=== PATIENT | male | born 1955 | race Caucasian/White ===

== ENCOUNTER 2024-05-30 15:36 | Outpatient (CLI) | payer MEDICARE, SELFPAY ==
--- NOTE | ~2024-05-30 | US_ITS ---
EXAMINATION: US aorta [facility] scrn DATE: 05/30/2024 16:22 INDICATION: Abdominal aortic aneurysm screening. TECHNIQUE: Grayscale, color Doppler, and pulsed Doppler images of the aorta and common iliac arteries were obtained. COMPARISON: None. FINDINGS: The aorta is normal in caliber. The right common iliac artery is normal in caliber. The left common i liac artery is normal in caliber. IMPRESSION: 1. No abdominal aortic aneurysm. 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
--- OUTSIDE RECORDS SUMMARY | 2024-05-31 06:05 | XMS_ITS | Data Portability ---
Author Organization [place] [facility] [employer], Main Office Address [address] [place] [address] Care Team Providers Care Production Proofreader Name Role Phone INGRID OTERO Primary Care Provider [phone] INGRID OTERO Referring Provider [phone] Assessment Encounter Date Assessment Date Assessment LastModified by Organization Details LastModified Time 09/25/2023 09/25/2023 This note is dictated and transcribed by [employer]. System Support Technician variances may occur. Despite proofreading, typographical errors may occur. Occasional wrong-word or 'fodas-i-asco' substitutions may have occurred due to the inherent limitations of voice recording. Read the chart carefully and recognize, using context, where substitutions have occurred. Not available 09/25/2023 16:29:48 01/29/2024 01/29/2024 This note is dictated and transcribed by [employer]. System Support Technician variances may occur. Despite proofreading, typographical errors may occur. Occasional wrong-word or 'stgmq-j-invd' substitutions may have occurred due to the inherent limitations of voice recording. Read the chart carefully and recognize, using context, where substitutions have occurred. Not available 01/29/2024 15:01:02 05/27/2024 05/27/2024 This note is dictated and transcribed by [employer]. System Support Technician variances may occur. Despite proofreading, typographical errors may occur. Occasional wrong-word or 'cgxtg-e-hepq' substitutions may have occurred due to the inherent limitations of voice recording. Read the chart carefully and recognize, using context, where substitutions have occurred. Not available 05/27/2024 14:59:49 Plan of Treatment Reminders Order Date Submit Date Provider Last Modified By Organization Details Last Modified Time Details Appointments Establish ed Patient 15 2024 01:15P M Christian Coronado DPM Not available Not available Not available Lab None recorded. Referral None recorded. Procedures None recorded. Surgeries None recorded. Imaging None recorded. Medication Orders ketoconaz ole 2 % topical cream 2023 024 [id number], [address], [place], [id number], 09/25/2023 16:30:47 miconazol e nitrate 2 % topical powder 2023 024 [facility][id number], [address], [place], [id number], 09/25/2023 16:31:06 Patient TargetsNo targets recorded. Patient InstructionsNo instructions recorded. Reason for Referral None Reported. Results Created Date Observation Date Name Description Value Unit Range Abnormal Flag Note LastModifiedBy Organization Detail LastModifiedTime 04/25/20 24 04/25/2024 imagi ng/di agnos tic resul t [place], [address], 04/25/2024 10:50:33 Result Notes None recorded. Problems Name Problem SNOMED Code Status Onset Date Resolution Date Notes Provider Name and Address Organization Details Recorded Time Diabetic peripheral neuropathy 154905512 Active 2023 Christian Coronado DPM [address], [place], [address], [facility] [employer] 4 16:29:43 Tinea pedis 5902073 Active 2023 Christian Coronado DPM [address], [place], [address], [employer] [facility] [employer] 4 16:30:15 Onychomycosis of toenails 523330305 Active 2023 Christian Coronado DPM [address], [place], [address], [facility] 4 16:31:18 Exposure to Agent Maricao Active 2023 Christian Coronado DPM [address], [place], [address], [facility] 4 15:01:13 Problem Notes None recorded. Procedures Surgical History Date Name Laterality Status Provider Name and Address Organization Details Recorded Time 5 Nail Debridement completed Christian Coronado DPM [address], [place], [address], [facility] 05/27/2024 14:59:42 4 Nail Debridement completed Christian Coronado DPM [address], [place], [address], [facility] 02/05/2024 13:57:02 4 Nail Debridement completed Christian Coronado DPM [address], [place], [address], [facility] 09/27/2023 13:57:02 Imaging Results Imaging Date Name Status LastModified by [facility] Details LastModified Time 04/25/2024 imaging/[place], [address], 04/25/2024 10:50:33 Procedure Notes None recorded. Medical Equipment None Reported. Allergies No known drug allergies Medications Name Sig Start Date Stop Date Status Note LastModified by Organization Details LastModified Time prednisone 10 mg tablet active Not Available Not Available Not Available atorvastatin 20 mg tablet Take 1 tablet every day by oral route. active Not Available Not Available No t Available sildenafil 50 mg tablet active Not Available Not Available Not Available prednisone 5 mg tablet active Not Available Not Available No t Available miconazole nitrate 2 % topical powder APPLY TO THE AFFECTED AREA(S) BY TOPICAL ROUTE 2 TIMES PER DAY IN THE MORNING AND EVENING 2023 active Not Available Not Available Not Avai lable sildenafil 25 mg tablet Take 1 tablet every day by oral route. active Not Available Not Available No t Available hydrocortiso ne 2.5 % topical cream with perineal applicator APPLY A THIN LAYER TO THE AFFECTED AREA(S) BY TOPICAL ROUTE 2-4 TIMESDAILY active Not Available Not Available N ot Available metformin 1,000 mg tablet Take 1 tablet twice a day by oral route. active Not Available Not Available No t Available lisinopril 10 mg tablet active Not Available Not Available Not Available lisinopril 5 mg tablet Take 1 tablet every day by oral route. active Not Available Not Available No t Available methylpredni solone 4 mg tablets in a dose pack active Not Available Not Available No t Available ketoconazole 2 % topical cream APPLY TO THE AFFECTED AREA(S) plantar feet BY TOPICAL ROUTE ONCE DAILY, 2 weeks 2023 active Not Available Not Available Not Avai lable aspirin active Not Available Not Avail able Not Available DHEA active Not Available Not Availa ble Not Available niacin active Not Available Not Availa ble Not Available ferrous sulfate active Not Available Not Available Not Available multivitamin active Not Available Not Available Not Available Jardiance 25 mg tablet Take 1 tablet every day by oral route. active Not Available Not Available No t Available Mounjaro 2.5 mg/0.5 mL subcutaneous pen injector Inject 2.5 mg every week by subcutaneou s route. active Not Available Not Available No t Available Vitals Date Recorded Heart rate Respiratory rate Body temperature Oxygen saturation Oxygen saturation in Arterial blood by Pulse oximetry Body height Body mass index (BMI) Body weight Systolic blood pressure Diastolic blood pressure Provider Name and Address Organization Details Last Updated DateTime 4 78 /min 16 /min 97.3 [degF] 96 % 96 % 175.26 cm 28.8 kg/m2 71956.5 1 g 120 mm[Hg] 80 mm[Hg] [facility]an [place] [employer] 4 15:33:41 Date Recorded Body height Body mass index (BMI) Body weight Heart rate Respiratory rate Body temperature Oxygen saturation Oxygen saturation in Arterial blood by Pulse oximetry Systolic blood pressure Diastolic blood pressure Provider Name and Address Organization Details Last Updated DateTime 4 175.26 cm 28.8 kg/m2 68304.5 1 g 77 /min 16 /min 97.3 [degF] 96 % 96 % 120 mm[Hg] 80 mm[Hg] [facility]an [place] [facility] 14:12:05 Date Recorded Body height Body mass index (BMI) Body weight Heart rate Respiratory rate Oxygen saturation Oxygen saturation in Arterial blood by Pulse oximetry Systolic blood pressure Diastolic blood pressure Provider Name and Address Organization Details Last Updated DateTime 175.26 cm 28.8 kg/m2 95670.5 1 g 84 /min 14 /min 98 % 98 % 121 mm[Hg] 75 mm[Hg] Halley Reis [facility] [employer] [facility] 5 14:11:08 Social History Question Answer Notes LastModified by Organizat ion Details LastModified Time Tobacco Smoking Status Former Smoker Halley collins [facility] [employer] [facility] 09/25/2023 16:22:43 What Is Your Level Of Alcohol Consumption? Occasional Information not available 09/25/2023 What Is Your Level Of Caffeine Consumption? Occasional Information not available 09/25/2023 When Did You Quit Smoking? 11-15yearssinc elastcigarette Information not available 09/25/2023 What Was The Date Of Your Most Recent Tobacco Screening? 09/25/2023 Information not available 09/25/2023 Have You Ever Been Counseled For Unhealthy Alcohol Use? No Information not available 09/25/2023 Do You Use Any Illicit Or Recreational Drugs? No Information not available 09/25/2023 Has Tobacco Cessation Counseling Been Provided? No Information not available 09/25/2023 How Many Years Have You Smoked Tobacco? 25 Information not available 09/25/2023 Do You Or Have You Ever Used Any Other Forms Of Tobacco Or Nicotine? No Information not available 09/25/2023 Sex: Unknown Functional Status None recorded. Mental Status None recorded. Family History Relationship Description Onset Age of this Age Resolved Age Notes LastModified by Organization Details LastModified Time Father No current problems or disability [email or web address] Not available 05/27 14:01:39 Father Hypertensive disorder Not available 2023 16:22:00 Father Family history of malignant neoplasm [email or web address] Not available 2024 14:01:39 Mother No current problems or disability [email or web address] Not available 05/27 14:01:39 Mother Diabetes mellitus Not available 2023 16:21:41 Mother Family history of malignant neoplasm [email or web address] Not available 2024 14:01:39 Unspecified Relation Family history of stroke [email or web address] Not available 2024 14:01:39 Medical History Condition Response DIABETES, TYPE Y CANCER: SPECIFY Y ANXIETY DISORDER Y HYPERTENSION Y HIGH CHOLESTEROL / HYPERLIPIDEMIA Y Past Encounters Encounter ID Performer Location Encounter Start Date Encounter Closed Date Diagnosis/Indication Diagnosis SNOMED-CT Code Diagnosis ICD10 Code Diagnosis Note [id number] Christian Coronado DPM [facility] [place] [address] [facility] [address] [place] [address] 09/25/2023 15:22:50 09/28/2023 12:08:28 Diabetic peripheral neuropathy 240393999 E11.40 Patient educated on neuropathy , diabetes, diabetic diet, and daily foot exams. Patient is to check feet daily for new wounds, blisters, redness to prevent infection and ulceration s to the feet. Patient will return to clinic in 3 months for diabetic foot workup. Tinea pedis 1626381 B35. 3 bilateral feeteducat ed on foot hygiene and shoe hygiene Onychomyco sis of toenails 544898092 B35.1 Patient was educated on treatment options of onychomyco sis. Patient's nails 1 through 10 were debrided without incident. Patient defers pharmacolo gical management due to possible side effects and will continue with conservati ve options. Return to clinic as needed every 3 months for this problem [id number] Christian Coronado DPM [facility] [place] [address] [place] [address] 01/29/2024 13:54:07 02/05/2024 18:01:49 Diabetic peripheral neuropathy 599729978 E11.40 Patient educated on neuropathy , diabetes, diabetic diet, and daily foot exams. Patient is to check feet daily for new wounds, blisters, redness to prevent infection and ulceration s to the feet. Patient will return to clinic in 3 months for diabetic foot workup. Onychomyco sis of toenails 806140215 B35.1 Patient was educated on treatment options of onychomyco sis. Patient's nails 1 through 10 were debrided without incident. Patient defers pharmacolo gical management due to possible side effects and will continue with conservati ve options. Return to clinic as needed every 3 months for this problem Exposure t o Agent Maricao [id number] Z77.29 while in [id number] Christian Coronado DPM [facility] [place] [address] [place] [address] 05/27/2024 14:00:03 05/27/2024 15:00:05 Diabetic peripheral neuropathy 769870687 E11.40 Patient educated on neuropathy , diabetes, diabetic diet, and daily foot exams. Patient is to check feet daily for new wounds, blisters, redness to prevent infection and ulceration s to the feet. Patient will return to clinic in 3 months for diabetic foot workup. Onychomyco sis of toenails 449906115 B35.1 Patient was educated on treatment options of onychomyco sis. Patient's nails 1 through 10 were debrided without incident. Patient defers pharmacolo gical management due to possible side effects and will continue with conservati ve options. Return to clinic as needed every 3 months for this problem Health Concerns Section Related Observation LastModified by Organization Detai ls LastModified Time None Recorded Concern Status LastModified by Organization Details LastModified Time None Recorded Advance Directives Directive None Recorded Payers Encounter Date Sequence Insurance Name Policy Number Policy Wood Covered Member ID Wood Member ID Guarantor Name 09/25/2023 1 [employer] (MEDICARE REPLACEMENT/ ADVANTAGE - PPO) Albert Tiwari [id number] Albert Tiwari 01/29/2024 1 [employer] (MEDICARE REPLACEMENT/ ADVANTAGE - PPO) Albert Tiwari [id number] Albert Tiwari 05/27/2024 1 [employer] (MEDICARE REPLACEMENT/ ADVANTAGE - PPO) Albert Tiwari [id number] Albert Tiwari Notes Date Note Type Note Provider Name and Address Organization Details Recorded Time 09/25/2023 text/html . Patient is a 68-year-old male diabetic who presents the office for diabetic foot care. Patient states that he has also noticed a itching and rash to his feet. Patient denies any treatment for this condition. Patient also has thickened and discolored toenails. Patient denies any other complaints. Christian Coronado DPM [address] [place] [address] [address] [facility] [address], [place], [address], [facility] 09/27/2023 13:59:50 01/29/2024 text/html . Patient 68-year-old male diabetic who returns to the office for follow-up on diabetic foot care. Patient continues have numbness and tingling of the feet. Patient has onychomycosis of the toenails which he is unable to cut the toenails. Patient denies any other pedal complaints. Christian Coronado DPM [address], [place], [address], [facility] 02/05/2024 13:57:26 05/27/2024 text/html . Patient is a 69-year-old male diabetic with neuropathy he returns for follow-up on routine diabetic foot care states overall he is doing well denies any open wounds or infection. Patient states he needs his nails cut as he has difficulty cutting them due to neuropathy. Patient denies any intermittent claudication walking or rest pain. Patient denies any other complaints. Christian Coronado DPM [address], [place], [address], [facility] 05/27/2024 15:00:04
--- OUTSIDE RECORDS SUMMARY | 2024-05-31 06:06 | XMS_ITS | Data Portability ---
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 I told him that I am not comfortable doing that he could seek the opinion of specialist and environmental toxins we will obtain blood work old records follow-up with me 4 months [email or web address] Not available 09/23/2023 16:36:15 12/28/2023 12/28/2023 healthy high tian d lifestyle care instructions dermatology referral psychiatric referral follow up with me in 4 months blood work has been reviewed he will continue to see the [facility] as well it sounds like for some ongoing evaluations for possibly some toxic exposures [email or web address] Not available 12/28/2023 23:04:08 04/15/2024 04/15/2024 mild elevation o f liver enzymes we will obtain blood work for that also some inflammatory markers for his joint pain keep his regular visit more recommendations pending results of testing [email or web address] Not available 05/17/2024 22:00:22 05/23/2024 05/23/2024 refill medicatio ns he will see me in recommended Prevnar 20 we do not have any in the clinic today [email or web address] Not available 05/23/2024 23:18:19 Plan of Treatment Reminders Order Date Submit Date Provider Last Modified By Organization Details Last Modified Time Details Appointments NEW PATIENT 60 2024 01:30P M MONIQUE MCCALLUM NP Not available Not available Not available ANY 15 2024 10:00A M Ingrid Leger MD Not available Not available Not available Lab PSA, total, serum or plasma 2023 024 [facility], [address], [address], [place], [address], 12/19/2023 11:38:57 HbA1c (hemoglob in A1c), blood 2023 024 [facility], [address], [address], [place], [address], 12/19/2023 11:38:58 albumin/c reatinine , mass ratio, urine 2023 024 [facility], [address], [address], [place], [address], 12/19/2023 11:38:57 CBC w/ auto diff 2023 024 [facility], [address], [address], [place], [address], 12/19/2023 11:38:58 lipid panel, serum 2023 024 [facility], [address], [address], [place], [address], 12/19/2023 11:38:58 CMP, serum or plasma 2023 024 [facility], [address], [address], [place], [address], 12/19/2023 11:38:58 TSH, ultra-sen sitive, serum 2023 024 [facility], [address], [address], [place], [address], 12/19/2023 11:38:57 unlisted lab - T4, free 2023 024 [email or web address] [facility], [address], [address], [place], [address], 12/19/2023 11:40:07 T3, free, serum or plasma 2023 024 J[facility], [address], [address], [place], [address], 12/19/2023 11:38:57 CK (creatine kinase), total, serum [email or web address] [address], [place], [address], 04/19/2024 11:15:25 vitamin D, 25-hydrox y, total, serum [address] (L&D), [address], [place], [address], 04/15/2024 14:55:00 cryoglobu hilton, quantitat joanna, serum [address] (L&D), [address], [place], [address], 04/15/2024 14:55:00 hepatitis panel (A+B+C), acute, serum [address] (L&D), [address], [place], [address], 04/15/2024 14:55:00 CHETAN (antinucl ear antibodie s) screen, serum [address] (L&D), [address], [place], [address], 04/15/2024 14:55:00 copper, serum or plasma [address] (L&D), [address], [place], [address], 04/15/2024 14:55:00 cerulopla smin, serum [address] (L&D), [address], [place], [address], 04/15/2024 14:55:00 alpha-1-a ntitrypsi n (aat), QN, serum [address] (L&D), [address], [place], [address], 04/15/2024 14:55:00 iron + TIBC + ferritin, serum 2023 [facility] (L&D), [address], [place], [address], 04/19/2024 11:14:51 ESR (erythroc yte sedimenta tion rate), blood 2023 [facility] (L&D), [address], [place], [address], 04/19/2024 11:13:29 smooth muscle Ab, serum [address] (L&D), [place], [address], 04/15/2024 14:55:00 mitochond rial Ab, serum [address] (L&D), [address], [place], [address], 04/15/2024 14:55:00 connectiv e tissue autoimmun e Ab panel, serum [address] (L&D), [address], [place], [address], 04/15/2024 14:55:00 rf (rheumato id factor) + anti-ccp abs, serum [address] (L&D), [address], [place], [address], 04/15/2024 14:55:00 Referral podiatris t referral 2023 024 [facility], [address], [place], [address], 12/21/2023 16:51:03 psychiatr ist referral 2023 024 JOR[facility]ane[facility] (), [address] [place], [address], 01/03/2024 14:25:08 cardiolog ist referral 2023 024 [facility], [address] [facility] [address], [place], [address], 05/16/2024 17:57:57 dermatolo gist referral 2023 024 [facility], [address] [place], [address], 04/22/2024 14:57:22 Procedures None recorded. Surgeries None recorded. Imaging US, liver 2023 024 JOR[facility] (L&D), [address], [place], [address], 05/30/2024 15:15:35 Medication Orders sildenafi l 50 mg tablet 2024 025 [id number], [address] [facility] [place], [id number], 05/23/2024 14:40:35 Mounjaro 2.5 mg/0.5 mL subcutane ous pen injector 2024 025 [email or web address] [facility][id number], [address] [facility] [place], [id number], 05/23/2024 14:40:35 metformin 1,000 mg tablet 2024 025 [email or web address] [facility] [facility] #56211, [address] [facility] [place], [id number], 05/23/2024 14:40:35 lisinopri l 10 mg tablet 2024 025 [email or web address] [facility] #[id number], [address] [facility] [employer] [place], [place], [id number], 05/23/2024 14:40:35 Patient TargetsNo targets recorded. Patient Instructions Encounter Date Encounter Id Patient Instructions Last Modified By Organization Details Last Modified Time 09/11/2023 [id number] diabetic eye exam* JORGE Not available 12/19/2023 11:33:05 12/28/2023 [id number] A healthy lifestyle: care instructions [email or web address] Not available 12/28/2023 17:50:47 04/15/2024 [id number] A healthy lifestyle: care instructions [email or web address] Not available 04/15/2024 14:55:00 05/23/2024 [id number] A healthy lifestyle: care instructions [email or web address] Not available 05/23/2024 14:40:35 Reason for Referral Naturopathic Oncology Provider Referral for Type 2 diabetes mellitus Referring Physician: Ingrid Leger, Internal Medicine, Encounter Date: 09/11/2023 Psychiatrist Referral for Po sttraumatic stress disorder Referring Physician: Ingrid Leger, Internal Medicine, Encounter Date: 12/28/2023 [employer]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 Referring Physician: Ingrid Leger, Internal Medicine, Encounter Date: 12/28/2023 Single Stroke Preformer Referral for Co ronary atherosclerosis Referring Physician: Ingrid Leger, Internal Medicine, Encounter Date: 12/28/2023 Results Created Date Observation Date Name Description Value Unit Range Abnormal Flag Note LastModifiedBy Organization Detail LastModifiedTime 12/19/19 24 12/19/2023 T4, free, serum A1C 6.4 Not Available [facility] [address], [place], [address], 12/19/2023 11:38:58 12/19/19 24 12/19/2023 HbA1c (hemo globi n A1c), blood A1C 6.4 Not Available [facility] [address], [place], [address], 12/19/2023 11:38:58 12/19/19 24 12/19/2023 CBC w/ auto diff A1C 6.4 Not Available [facility] [address], [place], [address], 12/19/2023 11:38:58 12/19/19 24 12/19/2023 lipid panel , serum A1C 6.4 Not Available [facility] [address], [place], [address], 12/19/2023 11:38:58 12/19/19 24 12/19/2023 CMP, serum or plasm a A1C 6.4 Not Available [facility] [address] [facility] [address], [place], [address], 12/19/2023 11:38:58 12/19/19 24 12/19/2023 TSH, ultra -sens itive , serum A1C 6.4 Not Available [facility] [address] [facility] [address], [place], [address], 12/19/2023 11:38:57 12/19/19 24 12/19/2023 T3, free, serum or plasm a A1C 6.4 Not Available [facility] [address] [facility] [address], [place], [address], 12/19/2023 11:38:57 12/19/19 24 12/19/2023 PSA, total , serum or plasm a A1C 6.4 Not Available [facility] [address] [facility] [address], [place], [address], 12/19/2023 11:38:57 12/19/19 24 12/19/2023 album in/cr eatin ine, mass ratio , urine A1C 6.4 Not Available [facility] [address] [facility] [address], [place], [address], 12/19/2023 11:36:51 05/30/19 25 04/25/2024 US, liver No observ ation record ed. [email or web address] [facility] (L&D) [address], [place], [address], 05/30/2024 22:36:16 Result Notes None recorded. Problems Name Problem SNOMED Code Status Onset Date Resolution Date Notes Provider Name and Address Organization Details Recorded Time Type 2 diabetes mellitus 65604532 Active 2023 KAREN Farr [place] - [facility] 17:04:56 Skin lesion 82220145 Active 2023 KAREN Farr [place] - [facility] 17:26:30 Posttraumatic stress disorder 91473210 Active 2023 Mike Lilliam K[place]EN null, [place] - [facility] 4 17:26:30 Overweight 169788467 Active 2023 Mike Vyas [place] - [facility] 4 17:26:31 Liver enzymes level above reference range 839600778 Active 2023 Mike Vyas [place], [place] - [facility] 4 11:33:38 Problem Notes None recorded. Procedures Surgical History Date Name Laterality Status Provider Name and Address Organization Details Recorded Time tonsillectomy completed Nicko Esposito [place] [facility] 12/28/2023 15:56:34 Imaging Results Imaging Date Name Status LastModified by Organiz ation Details LastModified Time 04/25/2024 US, liver completed [email or web address] [facility] (L&D) [address], [place], [address], 05/30/2024 22:36:16 Procedure Notes None recorded. Medical Equipment None Reported. Allergies No known drug allergies Medications Name Sig Start Date Stop Date Status Note LastModified by Organization Details LastModified Time prednison e 10 mg tablet Take 1 tablet every day by oral route for 14 days. active Not Available Not Available No t Available atorvasta tin 20 mg tablet TAKE 1 TABLET BY MOUTH EVERY DAY active Not Available Not Available No t Available sildenafi l 50 mg tablet take 1 tablet 30mins before intercou rse no more then 1 in 24hrs 2024 active Not Available Not Available Not Avai lable prednison e 5 mg tablet active Not Available Not Available Not Available sildenafi l 25 mg tablet TAKE 1 TABLET BY MOUTH EVERY DAY DIRECTED 05/23 completed changed to 50mg per pts request Dr Arsen wallis Not Available Not Available Not Available aspirin 81 mg tablet,de layed release Take 1 tablet every day by oral route. active Not Available Not Available No t Available hydrocort isone 2.5 % topical cream with perineal applicato r APPLY A THIN LAYER TO THE AFFECTED AREA(S) BY TOPICAL ROUTE 2-4 TIMESDAI LY active Not Available Not Available No t Available metformin 1,000 mg tablet Take 1 tablet twice a day by oral route. 2024 active Not Available Not Available Not Avai lable lisinopri l 10 mg tablet Take 1 tablet every day by oral route. 2024 active Not Available Not Available Not Avai lable lisinopri l 5 mg tablet Take 1 tablet every day by oral route. 12/27 completed Not Available Not Available Not Available methylpre dnisolone 4 mg tablets in a dose pack Take 1 dose pk by oral route as directed . 05/23 completed Not Available Not Available Not Available ketoconaz ole 2 % topical cream APPLY TO THE AFFECTED AREA(S) BY TOPICAL ROUTE ONCE DAILY active Not Available Not Available No t Available fluticaso ne propionat e 50 mcg/actua tion nasal spray,rc pension [place] 2 sprays every day by intranas al route in the morning. active Not Available Not Available No t Available Jardiance 25 mg tablet Take 1 tablet every day by oral route in the morning. active Not Available Not Available No t Available Mounjaro 2.5 mg/0.5 mL subcutane ous pen injector inject 2.5mg weekly 2024 active Not Available Not Available Not Avai lable Vitals Date Recorded Body height Provider Name an d Address Organization Details Last Updated DateTime 09/11/2023 175.26 cm Concha Avila [facility] 09/10 15:45:29 Date Recorded Body mass index (BMI) Body weight Provider Name and Address Organization Details Last Updated DateTime 09/11/2023 29.4 kg/m2 06530.16 g Concha Avila MA [facility] 09/11/2023 15:45:34 Date Recorded Heart rate Provider Name an d Address Organization Details Last Updated DateTime 09/11/2023 90 /min Concha Avila MA [facility] 09/10 15:49:25 Date Recorded Oxygen saturation Oxygen saturation in Arterial blood by Pulse oximetry Provider Name and Address Organization Details Last Updated DateTime 09/11/2023 93 % 93 % Concha Aivla MA [facility] 09/11/2023 15:49:27 Date Recorded Body height Provider Name an d Address Organization Details Last Updated DateTime 12/28/2023 175.26 cm Shayancookie Vaibhav KAREN [facility] 12/28/2023 15:50:53 Date Recorded Body mass index (BMI) Body weight Provider Name and Address Organization Details Last Updated DateTime 12/28/2023 29.1 kg/m2 91442.7 g Ethelrenzocookie EspositoKAREN [facility] 12/28/2023 15:51:07 Date Recorded Heart rate Provider Name an d Address Organization Details Last Updated DateTime 12/28/2023 84 /min Ethelflavio Esposito KAREN [facility] 12/07 16:05:13 Date Recorded Oxygen saturation Oxygen saturation in Arterial blood by Pulse oximetry Provider Name and Address Organization Details Last Updated DateTime 12/28/2023 95 % 95 % Nicko Esposito MA [facility] 12/28/2023 16:05:17 Date Recorded Body height Provider Name an d Address Organization Details Last Updated DateTime 04/15/2024 175.26 cm Mis Alcazar MA [facility] 04/15/2024 10:34:27 Date Recorded Body mass index (BMI) Body weight Provider Name and Address Organization Details Last Updated DateTime 04/15/2024 27.8 kg/m2 50646.08 tony Alcazar [facility] 01/2024 10:37:48 Date Recorded Heart rate Provider Name an d Address Organization Details Last Updated DateTime 04/15/2024 81 /min Mis Alcazar MA [facility] 04/15/2024 10:40:23 Date Recorded Oxygen saturation Oxygen saturation in Arterial blood by Pulse oximetry Provider Name and Address Organization Details Last Updated DateTime 04/15/2024 97 % 97 % Mis Alcazar [facility] 04/15 10:40:28 Date Recorded Body height Provider Name an d Address Organization Details Last Updated DateTime 05/23/2024 175.26 cm Delicia Kinsey MA [facility] 11:54:29 Date Recorded Body mass index (BMI) Body weight Provider Name and Address Organization Details Last Updated DateTime 05/23/2024 26.5 kg/m2 14132.83 tony Delicia Kinsey MA [facility] 0 05/23/2024 11:55:55 Date Recorded Heart rate Provider Name an d Address Organization Details Last Updated DateTime 05/23/2024 84 /min Delicia Kinsey MA [facility] 12:00:23 Date Recorded Oxygen saturation Oxygen saturation in Arterial blood by Pulse oximetry Provider Name and Address Organization Details Last Updated DateTime 05/23/2024 97 % 97 % Delicia Kinsey MA [facility] 05/23/2024 12:00:27 Date Recorded Systolic blood pressure Diastolic blood pressure Provider Name and Address Organization Details Last Updated DateTime 09/11/2023 140 mm[Hg] 82 mm[Hg] Concha Avila MA [facility] 09/11/2023 15:49:22 Date Recorded Systolic blood pressure Diastolic blood pressure Provider Name and Address Organization Details Last Updated DateTime 12/28/2023 124 mm[Hg] 74 mm[Hg] Nicko Esposito MA [facility] 12/28/2023 16:05:11 Date Recorded Systolic blood pressure Diastolic blood pressure Provider Name and Address Organization Details Last Updated DateTime 04/15/2024 120 mm[Hg] 84 mm[Hg] Mis Alcazar MA [facility] 120 01/2024 10:40:20 Date Recorded Systolic blood pressure Diastolic blood pressure Provider Name and Address Organization Details Last Updated DateTime 05/23/2024 120 mm[Hg] 68 mm[Hg] Delicia Kinsey MA [facility] 05/23/2024 12:02:00 Social History Question Answer Notes LastModified by Organizat ion Details LastModified Time Tobacco Smoking Status Former Smoker [facility] 15years ago. [facility]/11/2023 17:06:03 Do You Have An Advance Directive? No Information not available 04/15/2024 What Is Your Level Of Alcohol Consumption? Occasional Information not available 09/11/2023 Are You Blind Or Do You Have Difficulty Seeing? No Information not available 09/11/2023 In The 14 Days Before Symptom Onset, Have You Had Close Contact With A Laboratory-confir med COVID-19 While That Case Was Ill? No Information not available 04/15/2024 In The 14 Days Before Symptom Onset, Have You Had Close Contact With A Person Who Is Under Investigation For COVID-19 While That Person Was Ill? No Information not available 04/15/2024 Have You Been To An Area Known To Be High Risk For COVID-19? No Information not available 04/15/2024 Are You Deaf Or Do You Have Serious Difficulty Hearing? No Information not available 09/11/2023 What Type Of Diet Are You Following? REGULAR Information not available 04/15/2024 Are There Any Guns Present In Your Home? No Information not available 04/15/2024 What Was The Date Of Your Most Recent Tobacco Screening? 05/23/2024 [email or web address] Information not available 05/23/2024 What Is Your Relationship Status? Information not available 09/11/2023 Do You Use Your Seat Belt Or Car Seat Routinely? Yes Information not available 09/11/2023 Do You Have Smoke And Carbon Monoxide Detectors In Your Home? Yes Information not available 04/15/2024 How Much Tobacco Do You Smoke? 1 PPD Information not available 09/11/2023 Do You Feel Stressed (tense, Restless, Nervous, Or Anxious, Or Unable To Sleep At Night)? [id number] Information not available 09/11/2023 Do You Use Sunscreen Routinely? No Information not available 04/15/2024 How Many Years Have You Smoked Tobacco? 20 Information not available 09/11/2023 Sex: Male Functional Status Question Answer Note LastModified by Organization D etails LastModified Time Are you able to care for yourself? Yes Information n ot available 09/11/2023 Mental Status None recorded. Family History Relationship Description Onset Age of this Age Resolved Age Notes LastModified by Organization Details LastModified Time Mother Malignant tumor of breast [email or web address] Not available 12/07 15:56:00 Father Malignant neoplasm of liver [email or web address] Not available 12/07 15:56:12 Medical History Condition Response Coronary Artery Disease N Other Y High Blood Pressure Y Atrial Fibrillation N Thyroid Problems N Kidney or Bladder Problems N GI Problems Y Depression N COPD Y Blood Clots N Have you had a mammogram in the last yea r? N Skin Problems N Anemia N Heart Attack (ND) Y Diabetes Y Anxiety Disorder Y Muscle, Joint, or Bone Problems N Seizures/Epilepsy N Have you had a colonoscopy in the last 1 0 years? N Acid Reflux (GERD) N Cancer Y Stroke N Asthma N Allergies N Have you had a PSA blood test in the las t year? N High Cholesterol Y Hepatitis N Liver Disease Y Headaches N Osteoporosis N Heart Failure N Immunizations Vaccine Type Date Status Note Provider Nam e and Address Organization Details Recorded Time influenza, unspecified formulation 2024 completed Delicia Kinsey MA [facility] 05/23/2024 11:59:20 Past Encounters Encounter ID Performer Location Encounter Start Date Encounter Closed Date Diagnosis/Indication Diagnosis SNOMED-CT Code Diagnosis ICD10 Code Diagnosis Note [id number] Ingrid Leger MD [facility] [employer] [facility] [place] [address] [place] [address] 09/11/2023 14:31:05 09/11/2023 17:04:25 Type 2 diabetes mellitus 75419448 E11.9 Essential hypertension 21756446 I10 Screening for malignant neoplasm of prostate 539461738 Z12.5 Obstructiv e sleep apnea syndrome 30079390 G47.33 Hyperlipidemia 36237285 E78.5 Steatosis of liver 33820 1007 K76.0 [id number] Ingrid Leger MD [facility] [employer] [facility] [place] [address] [place] [address] 12/28/2023 15:02:53 12/28/2023 16:43:17 Overweight 827447177 E66.3 Skin lesion 59005313 L98 .9 Posttrauma tic stress disorder 42204688 F43.10 Coronary atherosclerosis 707085885 I25.10 [id number] Ingrid Leger MD [facility] [place] [address] [place] [address] 04/15/2024 10:21:45 04/15/2024 11:37:56 Body mass index 25-29 - overweight 222964597 Z68.27 Overweight 493035628 E66 .3 Liver enzy mes level above reference range 086484335 R74.8 Multiple joint pain 3567 8005 M25.50 [id number] Ingrid Leger MD [facility] [employer] [facility] [place] [address] [place] [address] 05/23/2024 11:44:51 05/23/2024 12:49:40 Body mass index 25-29 - overweight 872276189 Z68.26 Overweight 605942890 E66 .3 Type 2 goyo betes mellitus 92138962 E11.9 Erectile dysfunction 860 658595 F52.21 Essential hypertension 90315272 I10 Health Concerns Section Related Observation LastModified by Organization Detai ls LastModified Time None Recorded Concern Status LastModified by Organization Details LastModified Time None Recorded Advance Directives Directive N: Payers Encounter Date Sequence Insurance Name Policy Number Policy Wood Covered Member ID Wood Member ID Guarantor Name 12/28/2023 1 [employer] (MEDICARE REPLACEMENT/ ADVANTAGE - PPO) Albert Tiwari [id number] Albert Tiwari 04/15/2024 1 [employer] (MEDICARE REPLACEMENT/ ADVANTAGE - PPO) Albert Tiwari [id number] Albert Tiwari 05/23/2024 1 [employer] (MEDICARE REPLACEMENT/ ADVANTAGE - PPO) Albert Tiwari [id number] Albert Tiwari Notes Date Note Type Note Provider Name and Address Organization Details Recorded Time 09/11/2023 text/html 43-jbtd-ilhtow k ids going to harm no support for should but with a history of type 2 diabetes sleep apnea with central alveolar hypoventilation syndrome COPD erectile dysfunction hyperlipidemia history of GI bleed in the past hypertension hepatic steatosis narcolepsy diabetic peripheral neuropathy diverticulosis and skin cancer who has moved from [place] and he comes in to establish care also treated for depression stress anxiety PTAs ST full cardiac workup in [place] from where he has moved in the past 6 months or so that was negative for ischemiaCurrently non-smoking 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, [place], [address], [facility] 09/23/2023 16:38:30 12/28/2023 text/html [facility] issues diagnosed with posttraumatic stress wants to get a mental health professional involve no HI or SI. CAD denies chest pain diabetes A1c last couple of weeks with 6.4 he could stand to lose a little bit of weight and has gotten multiple skin lesions Ingrid Leger MD Attn: Accounting,[address], [place], [phone], [facility] 12/28/2023 23:04:24 04/15/2024 text/html he has had some stiffness multiple joint pain no fever no chills we stopped his cholesterol medicine with the equivocal results Medrol Dosepak has helped Ingrid Leger MD Attn: Accounting,[address] [facility], [place], [phone], [facility] 05/17/2024 22:01:18 05/23/2024 text/html his arthritic complaints are doing better. He needs refill his medicines for his diabetes erectile dysfunction and for his hypertension also interval history saw Cardiology Ingrid Leger MD Attn: Accounting,[address] , [place], [phone], [facility] 05/23/2024 23:18:35
--- OUTSIDE RECORDS SUMMARY | 2024-05-31 06:06 | XMS_ITS | Clinical Summary ---
Author Organization [facility] [address] Address [address] [place] [address] Care Team Providers Care Certified Appliance Service Technician Name Role Phone Sarath Leger MD Primary Care Provider + [phone] Allergies No known active allergies Medications aspirin 81 mg enteric coated tablet Take 1 tablet (81 mg total) by mouth daily Active atorvastatin (LIPITOR) 20 mg tablet Take 1 tablet (20 mg total) by mouth daily Active fluticasone propionate (FLONASE) 50 mcg/actuation nasal spray Administer 2 sprays into each nostril daily Active empagliflozin (JARDIANCE) 25 mg tablet Take 1 tablet (25 mg total) by mouth daily Active ketoconazole (NIZORAL) 2 % cream Apply topically daily Active lisinopriL (PRINIVIL,ZESTR IL) 10 mg tablet Take 1 tablet (10 mg total) by mouth daily Active metFORMIN (GLUCOPHAGE) 1,000 mg tablet Take 1 tablet (1,000 mg total) by mouth 2 (two) times a day with meals Active tirzepatide (MOUNJARO) 2.5 mg/0.5 mL pen injector Inject 0.5 mL (2.5 mg total) under the skin Active hydrocortisone (ANUSOL-HC) 2.5 % rectal cream Insert into the rectum 2 (two) times a day Active sildenafiL (VIAGRA) 25 mg tablet Take 1 tablet (25 mg total) by mouth daily as needed for erectile dysfunction Active multivitamin-mi n-FA-ginkgo 400-120 mcg-mg tablet Take by mouth Active predniSONE (DELTASONE) 5 mg tablet Active Active Problems Problem Noted Date Diagnosed Date Former smoker 05/16/2024 Nonrheumatic tricuspid valve regurgitation 05/16 Hyperlipidemia associated with type 2 diabetes m ellitus 05/16/2024 Hypertension associated with diabetes 05/16/2024 ALIREZA (obstructive sleep apnea) 05/16/2024 Palpitations 05/16/2024 PVC's (premature ventricular contractions) 05/16 Atherosclerosis of [place] co ronary artery of [place] heart without angina pectoris 05/16/2024 Encounters Date Type Department Care Team Description 05/17/2024 Orders Only [facility] Medical [facility] Cardiology [address] [place] [address] [place] [phone] ProviderKady MD 05/16/2024 2:30 PM BIT SHARPENER OPERATOR Ancillary Procedure [facility] Cardiology [address] [place] [address] [place] [phone] PVC's (premature ventricular contractions); Palpitations 05/16/2024 1:15 PM BIT SHARPENER OPERATOR Office Visit [facility] Medical [facility] Cardiology [address] [place] [address] [place] [phone] Gibson Shankar MD PVC's (premature ventricular contractions) (Primary Dx); Atherosclerosis of [place] coronary artery of [place] heart without angina pectoris; Palpitations; ALIREZA (obstructive sleep apnea); Hypertension associated with diabetes (HCC); Hyperlipidemia associated with type 2 diabetes mellitus (HCC); Nonrheumatic tricuspid valve regurgitation; Former smoker from Last 3 Months Surgical History Surgery Date Site/Laterality Comments TONSILLECTOMY Medical History Medical History Date Comments Hypertension Hyperlipidemia Diabetes mellitus (HCC) Anxiety and depression Sleep apnea COPD (chronic obstructive pulmonary disease) (HC C) Family History Medical History Relation Name Comments Colon cancer Father Liver cancer Father Cancer Mother Heart disease Sister 1 Fibromyalgia Sister 2 Relation Name Status Comments Father Mother Sister 1 Alive Sister 2 Alive Social History Tobacco Use Types Packs/Day Years Used Date Smoking Tobacco: Former Cigarettes 1.5 10 S tarted: 1984 Passive Smoke Exposure: Past Tobacco Cessation:Counseling Given: Not Answered Sex and Gender Information Value Date Recorded Sex Assigned at Not on file Legal Sex Male 10:09 AM CDT Gender Identity Not on file Sexual Orientation Not on file Obstetrics History Last Filed Vital Signs Vital Sign Reading Time Taken Comments Blood Pressure 110/66 05/16/2024 1:07 PM BIT SHARPENER OPERATOR Pulse 93 05/16/2024 1:07 PM BIT SHARPENER OPERATOR Temperature - - Respiratory Rate - - Oxygen Saturation 94% 05/16/2024 1:07 PM BIT SHARPENER OPERATOR Inhaled Oxygen Concentration - - Weight 80.7 kg (178 lb) 05/16/2024 1:07 PM BIT SHARPENER OPERATOR Height 175.3 cm (5' 9 ) 05/16/2024 1:07 PM BIT SHARPENER OPERATOR Body Mass Index 26.29 05/16/2024 1:07 PM BIT SHARPENER OPERATOR Plan of Treatment Health Maintenance Due Date Last Done Comments Albumin Creatinine Ratio, Urine 1957 Colon Cancer Screening-Colonoscopy 1957 Depression Screening 1957 Fall Risk Assessment 1957 Hemoglobin A1C 1957 Hepatitis C Screening 1957 Prostate Cancer Screening-PSA 1957 eGFR 1957 Dilated Eye Exam 1957 Foot Exam 1957 Pneumococcal vaccine 65+ (1 of 2 - PCV) 1963 DTaP/Tdap/Td Vaccine (1 - Tdap) 1968 Hepatitis B Screening 1975 Zoster Vaccine (1 of 2) 2007 Abdominal Aortic Aneurysm (AAA) Screen 2022 Well Visit 65+ 2022 Influenza Vaccine (#1) 2024 Lipid Panel 04/08/2025 04/08/2024, 10/12/2023 Procedures Procedure Name Priority Date/Time Associated Diagnosis Comments ELECTROCARDIOGRAM REPORT Routine 025 3:43 PM BIT SHARPENER OPERATOR Atherosclerosis of [place] coronary artery of [place] heart without angina pectoris PVC's (premature ventricular contractions) Palpitations LIPID PANEL Routine 10/12/2023 4:15 PM CDT from Last 3 Months or Most Recently Relevant to Health Maintenance Results * Electrocardiogram Report (05/16/2024 3:43 PM BIT SHARPENER OPERATOR) us Gibson Shankar MD ECG ORDERABLES Final Res ult * Lipid panel (10/12/2023 4:15 PM CDT) SCRIBED Cholesterol, Total 167 <200 EXTERNAL LAB SCRIBED HDL 30 >40 EXTERNAL LAB SCRIBED LDL 85 <100 EXTERNAL LAB SCRIBED Triglycerides 261 <150 EXTERNAL LAB Blood us Historical Provider LAB BLOOD ORDERABLES Edit ed Result - Final EXTERNAL LAB from Last 3 Months or Most Recently Relevant to Health Maintenance Insurance [employer] MEDIC[employer] PPO Care Teams Certified Appliance Service Technician Relationship Specialty Start Date End Date Sarath Leger MD [address] [place], [place] [id number] PCP - General Internal Medicine 12/29/23
--- OUTSIDE RECORDS SUMMARY | 2024-05-31 06:06 | XMS_ITS | Continuity of Care Document ---
Author Organization [facility] Address [address] [place] [address] Phone Care Team Providers Care Esol Instructor Name Role Phone Bharati Ledezma OD Unavailable Unavailable Allergies, Adverse Reactions, Alerts Substance Reaction Status Criticality No Known Allergies Active No Inform ation No Known Allergies Active No Inform ation Medications Medication Instructions Dosage Effective Dates (start - stop) Status Comments MULTIVITAMINS (unknown strength) Not Available - Active MOUNJARO (unknown strength) Not Available - Active IRON (unknown strength) Not Available - Active METFORMIN HCL (unknown strength) Not Available - Active ATORVASTATIN CALCIUM (unknown strength) Not Available - Active LISINOPRIL (unknown strength) Not Available - Active INVOKANA (unknown strength) Not Available - Active ASPIR 81 (unknown strength) Not Available - Active LIPITOR (unknown strength) take 1 tablet by oral route every day Not Available - No Longer Active Procedures Procedure Date REFRACTION Ophthalmological Services; Medical Exam & Eval; Comprehensive, Est Pt REFRACTION CONTACT LENS EVALUATION, Ophthalmological Services; Medical Exam And Eval; Comprehensive, Est Pt REFRACTION CONTACT LENS EVALUATION, Ophthalmological Services; Medical Exam And Eval; Comprehensive, Est Pt REFRACTION CONTACT LENS EVALUATION [facility]; Medical Exam And Eval; Comprehensive, Est Pt REFRACTION CONTACT LENS EVALUATION Op[facility]; Medical Exam And Eval; Comprehensive, Est Pt REFRACTION Contact Lens Eval For VSP, REPLACEMENT O Ophthalmological Services; Medical Exam And Eval; Comprehensive, Est Pt REFRACTION Contact Lens Eval For VSP Ophthalmological Services; Medical Exam And Eval; Comprehensive, Est Pt REFRACTION Ophthalmological Services; Medical Exam And Eval; Comprehensive, Est Pt CONTACT LENS EVALUATION Routine ophthalmological exa Contact Lens Eval For VSP REFRACTION Contact Lens Eval For VSP Ophthalmological Services; Medical Exam And Eval; Comprehensive, Est Pt Ophthalmological Services; Medical Exam And Eval; Comprehensive, Est Pt REFRACTION Contact Lens Eval For VSP Ophthalmological Services; Medical Exam And Eval; Comprehensive, Est Pt REFRACTION CONTACT LENS EVALUATION Routine ophthalmological exa CONTACT LENS EVALUATION Advance Directives Directive Yes / No Effective Date File Name No Information Encounters Encounter Description Practice Location Reason(s) For Visit Diagnoses Date Provider Providers Copied on [facility], [address], [place], [place], [id number] , tel: [phone] [facility] T2DM (chief complaint) Type 2 diabetes mellitus without complication, without long-term current use of insulinLong term (current) use of oral hypoglycemic drugsHigh myopia, both eyesRegular astigmatism of both eyesPresbyopia of both eyesCombined forms of age-related cataract of both eyes 4 Brisa Calabrese. [address], [place], [address], [place]. tel: [phone] [facility], [address], [place], [place], [id number] , tel: [phone] [facility] [place] DM CEE (chief complaint) Type 2 diabetes mellitus without complication, without long-term current use of insulinLong term (current) use of oral hypoglycemic drugsCombined forms of age-related cataract of both eyesHigh myopia, both eyesPresbyopia of both eyesPVD (posterior vitreous detachment), right eye Jul-3 0- 3 Cheli Janes. [address] [facility], [address], [address], . tel: [phone] [facility], [address], [place], [place], [id number] , tel: [phone] [facility] [place] routine eye exam OU (chief complaint) Type 2 diabetes mellitus without complication, without long-term current use of insulinLong term (current) use of oral hypoglycemic drugsCombined forms of age-related cataract of both eyesHigh myopia, both eyesPresbyopia of both eyes Jul-0 2 Cheli Janes. [address], [address], . tel: [phone] [facility], [address], [place], [place], [id number] , [place] tel: [phone] [facility] [place] DM ll (chief complaint) Type 2 diabetes mellitus without complication, without long-term current use of insulinLong term (current) use of oral hypoglycemic drugsHigh myopia, both eyesRegular astigmatism of both eyesPresbyopia of both eyesCombined forms of age-related cataract of both eyes 1 Cheli Janes. [address] [facility], [address], [address], . tel: [phone] [facility], [address], [place], [place], [id number] , [place] tel: [phone] [facility] [place] DM (chief complaint) Type 2 diabetes mellitus without complication, without long-term current use of insulinLong term (current) use of oral hypoglycemic drugsHigh myopia, both eyesRegular astigmatism of both eyesPresbyopia of both eyesSenile nuclear sclerosis, bilateral 0 Cheli Janes. [address], [address], . tel: [phone] [facility], [address], [place], [place], [id number] , [place] tel: [phone] [facility] annual exam (chief complaint) Type 2 diabetes mellitus without complication, without long-term current use of insulinHigh myopia, both eyesPresbyopia of both eyesPVD (posterior vitreous detachment), both eyes Oct-2 9-201 8 Cheli Janes. [address], [facility], . tel: [phone] [facility], [address], [place], [place], [id number] , [place] tel: [phone] [facility] [place] Dm type 2 (chief complaint) High myopia, both eyesRegular astigmatism of both eyesPresbyopiaType 2 diabetes mellitus without complication, without long-term current use of insulinPVD (posterior vitreous detachment), both eyes Oct-2 7-201 7 Cheli Janes. [address], [address], . tel: [phone] [facility], [address], [place], [place], [id number] , [place] tel: [phone] [facility] [place] Decreased vision (chief complaint) High myopia, both eyesAstigmatism of both eyesPresbyopia OUDermatochalasis of right upper eyelidDermatochalasis of left upper eyelidSenile nuclear sclerosis, bilateralVitreous syneresis of both eyesType 2 diabetes mellitus without complication, without long-term current use of insulin Oct-0 4-201 6 Cheli Janes. [address], [address], . tel: [phone] [facility], [address], [place], [place], [id number] , [place] tel: [phone] [facility] [place] Dry eyes (chief complaint) High myopia, both eyesAstigmatism of both eyesPresbyopia OUDM w/o complication type IIPVD (posterior vitreous detachment), both eyes Oct-0 2-201 5 Cheli Janes. [address], [facility], . tel: [phone] [facility], [address], [place], [place], [id number] , tel: [phone] [facility] [place] Decreased vision (chief complaint) DM Type 2, UncomplicatedNo diabetic retinopathy in both eyesMyopiaAstigmatism , unspecifiedPresbyopia 4 Cheli Janes. [address], [facility], . tel: [phone] [facility], [address], [place], [place], [id number] , [place] tel: [phone] [facility] [place] DM Type 2, UncomplicatedMyopiaAs tigmatism, unspecifiedPresbyopia Vitreous degeneration 3 Cheli Janes. [address], [facility], . tel: [phone] [facility], [address], [place], [place], [id number] , [place] tel: [phone] [facility] [place] DM Type 2, UncomplicatedRegular astigmatismPresbyopia Vitreous degeneration 2 Cheli Janes. [address], [facility], . tel: [phone] [facility], [address], [place], [place], [id number] , [place] tel: [phone] [facility] No Information 1 Cheli Janes. [address], [facility], . tel: [phone] [facility], [address], [place], [place], [id number] , tel: [phone] [facility] [place] No Information 0 1 Cheli Janes. [address], [facility], . tel: [phone] Family History Family Member Type Diagnosis Age At Onset Mother Problem (finding) HBP Problem Family history of Diabetes marisel hernandez Multiple Problem (finding) Maternal history of goyo betes mellitus Immunizations Vaccine Date Status Comments Influenza, seasonal, injectable administered Source: Other Provid er Influenza, seasonal, injectable administered Source: Other Provid er Influenza, seasonal, injectable administered Source: Other Provid er Flu (split) (3 yrs or older) administered Note: Invalid documented admin date was . ; Source: Other Provider Payers Payer name Insurance type Covered green party ID Authoriza tion(s) [employer] Medicare PPO [id number] Social History Type Description Quantity Date Captured Comments Alcohol Use Details Caffeine Use Details Unknown Tobacco Use Status Ex-cigarette smoker 024 Smoking Status Former smoker Smoking Tobacco Use Details Cigarette: Age Stopped: 57 Cigarette: No Details Available Sex Male Chief Complaint And Reason For Visit From encounter dated '07/17/2023 13:15'. T2DM (chief complaint). Description: The 68 year old patient presents for evaluation of T2DM. Pt says that vision is stable and good. Pt says that he also has been wearing an older pair of prescription glasses since his newest pair he didn't like how there is the magnetic lenses" for the sunglasses. Says that they are in the way and he could see them. Pt says that he has noticed his eyes are getting pretty dry causing some slight blurriness till he blinks. Pt is noticing more and more glare with nighttime driving.BS: 131, taken this [id number]: 6.9- 7.1, taken about 5-6 months agoTakes an oral med and insulin Reason For Referral Reason For Referral No Information Plan Of Treatment Date Type Action Status Patient Education Health Information for You: MedlinePl~ completed History Of Present Illness Encounter Date Complaint History Of Prese nt Illness T2DM The 68 year old patient presents for evaluation of T2DM. Pt says that vision is stable and good. Pt says that he also has been wearing an older pair of prescription glasses since his newest pair he didn't like how there is the magnetic lenses for the sunglasses. Says that they are in the way and he could see them. Pt says that he has noticed his eyes are getting pretty dry causing some slight blurriness till he blinks. Pt is noticing more and more glare with nighttime driving.BS: 131, taken this [id number]: 6.9- 7.1, taken about 5-6 months agoTakes an oral med and insulin DM CEE The 67 year old patient presents for evaluation of DM CEE. PT states since last appointment he has stomped wearing CL as frequently and uses them 2-3x a week for 10-14 hours. Pt uses daily disposable CL and does not sleep in them. PT states that last pair of glasses never worked well for him and seem uncomfortable , pt wears glasses from the appointment before last because he prefers them.A1C: 8.2 3 months ago BS: 180 a few days ago COVID screen neg routine eye exam OU The 66 year old male presents for evaluation of routine eye exam OU. Pt states no noticeable changes to VA OU in the last year. Pt is wearing an older pair of glasses that he states are more comfortable to wear than latest prescription, pt did not bring latest glasses with him today. No pain or irritation noted. CL: daily disposable, AWT 10-12 hrs comfortable to wear, denies sleeping in contacts. DM II, does not current take BS at home, Last A1C 8.1 AprOVID SCREEN NEGATIVE DM ll The 65 year old male presents for evaluation of DM ll. Pt is here for Annual Eye Exam . Pt is DM ll controlling with oral medications, A1C=9.2 X3 weeks. Pt is wearing Acuvue ! day CL 2-3 times per week for 5 hours per day. Pt states they are comfortable and he is not sleeping in them. Pt states no change to DVA/NVA OU since last visit. DM The 64 year old male presents for evaluation of DM and high myopia. Patient doesn't check BS's at home, Last A1C 7.1. Patient states is vision is good for distance and near but he needs new glasses due to them being scratched. Patient wears daily soft contacts 12+ hours a day, no sleep. annual exam The patient is p resent for evaluation of annual exam. Pt states he has a 1 year eye exam and check for contacts. Pt states no issues with CLs. Pt states he wears CLs about 14 hrs a day, and does not sleep with them in. Pt states no noticeable changes to vision since last visit. Pt denies any pain/irritation OU. Non-insulin type II DM x2 yrs. BS unknown, A1C @7.2 x6 mos. Dm type 2 The 61 year old male presents for evaluation of Dm type 2. Pt states overall vision is stable x 1 year.Pt states OU gets tired after looking at the computer for long periods of time. Pt denies any pain or redness. Pt uses Acuve 1 Day contact lenses. Pt wears contacts 12 to 14 hours x 5-7 days a week. Pt states cl is comfortable.Dm type 2, BS unkown, A1C 7.1, uses oral meds. Decreased vision The 60 year old male presents for evaluation of Decreased vision in the right eye and left eye. Pt states it is mostly NVA while he is on the computer even with glasses on or CL in. Pt has progressive glasses that are a year old and soft CL which he wears most the time 10-12 hours a day and does not sleep in them. Pt is a type II diabetic who does not use insulin. He does not take BS daily and is unsure of his range and last A1C. Pt denies any pain OU. HX PVD OU. Dry eyes The 59 year old male presents for evaluation of Dry eye and fatigue feeling in the right eye and left eye. It started month(s) ago. The symptom is occasional. Vsn remains stable, no changes notice in vsn. AWT 12- 14 - NO SLEEP - [facility] - CL SOFT - DISP X 1 MO. DM 2010 - BS not check at home. AIC unkown. H/O : DM Type 2 with no diabetic retinopathy OU, myopia with astigmatism and presbyopia Decreased vision The 58 year old male presents for evaluation of Decreased vision in the right eye and left eye. Notices with the CL's after being on the computer eyes will start to feel strained. With the glasses has to look more out of the bottom to see the computer and also feels like has to squint. CL's are feeling more dry lately but it could be because of allergies.AWT=10 hoursNormally disposes once a month, no sleepDoesn't check bs at home, last A1C was 6 about 9 months ago Functional Status Date Functional Assessmen t No Information Instructions Date Instruction Additional Infor des Impression/Plan Impression/Plan Impression/Plan Impression/Plan Impression/Plan Impression/Plan - 1. DM II- DM w. no retinopathy. Discussed diagnosis in detail with patient. Diabetic retinopathy book given to patient. Letter to Primary Care Physician. Pt is aware that no Diabetic changes were noted in today's exam. Pt questions were answered. Advised pt to contact the office with any other questions or concerns.2. PVD OU- Discussed in detail with patient. Advised patient to call immediately with an increase in floaters, flashes of light or dark veils/curtains over vision.3. High Myopia OU4. Regular astigmatism OU5. Presbyopia OU Discussed with patient that overall ocular health is good. New glasses RX given today. All patients questions were answered and advised the patient to call the office with any other questions or concerns. New contact lens RX given today. Discussed benefits and all risks of contact lens wear. Answered all of patient questions. Advised to call office with any other questions or concerns. Related to Type 2 diabetes mellitus without complication, without long-term current use of insulin - Return in 1 year w Janes Dunlap for Complete Exam / Contacts Related to Type 2 diabetes mellitus without complication, without long-term current use of insulin - Return in 1 year w Janes Dunlap for Complete Exam / Contacts Related to Type 2 diabetes mellitus without complication, without long-term current use of insulin - Discussed diagnosi s(es) in detail with patient. New glasses Rx was given today. New contact lens prescription provided to pt today. Diabetic retinopathy book given to patient. Letter to Primary Care Physician. Pt is aware that no Diabetic changes were noted in today's exam. Pt is Type II Diabetic controlled with oral medication. Explained to pt that he has mild Cataract formation in both eyes. At this time we will continue to monitor for pt yearly. The Cataract formation is not far enough along at this time to consider treatment. Pt questions were answered. Advised pt to contact the office with any other questions or concerns. Related to Type 2 diabetes mellitus without complication, without long-term current use of insulin - Discussed diagnosi s in detail with patient. New glasses Rx was given today. New contact lens prescription provided to pt today. Diabetic retinopathy book given to patient. Letter to Primary Care Physician. Pt is aware that no Diabetic changes were noted in today's exam. Pt questions were answered. Advised pt to contact the office with any other questions or concerns. Related to DM w/o complication type II - Return in 1 year w Janes Dunlap for Complete Exam / Contacts Related to DM w/o complication type II Related to Myopi a Related to Astig matism, unspecified Related to Presb yopia Related to DM Ty pe 2, Uncomplicated - Discussed diagnosi s in detail with patient. New glasses Rx was given today. New contact lenses ordered for pt today. Recommend wearing a +1.25 or +1.50 OTC reader over CLs while on the computer. Computer glasses Rx given--for use on the computer when not wearing Cls. Educational materials provided:Diabetic retinopathy. Letter to Primary Care Physician. Pt questions were answered. Pt advised to contact the office with any other questions or concerns.Return in [address] Bower for CEE All risks and benefits of contact lens wear discussed with patient and/or guardian and level of charges. Related to DM Type 2, Uncomplicated - Return in 1 year w jyoti Bower for CEE Related to DM Type 2, Uncomplicated General plan -Diabet es mellitus -Myopia -Astigmatism, unspecified -Presbyopia -PVD (posterior vitreous detachment) - Discussed diagnosis in detail with patient. New glasses Rx was given today. New contact lenses ordered for pt today. Educational materials provided:Diabetic retinopathy. Letter to Primary Care Physician. Pt questions were answered. Pt advised to contact the office with any other questions or concerns. Related to See impression: general plan - Return 1 year with Janes Bower for Complete Exam / Contacts. Related to See impression: general plan General plan -Diabet es mellitus -Myopic Astigmatism -Presbyopia -PVD (posterior vitreous detachment) - new glasses rx givennew scl letter to pcp Related to See impression: general plan - Return in 1 year w Janes Dunlap for Complete Exam / Contacts. Related to See impression: general plan Assessments Type Assessment Date assessment Type 2 diabetes sami itus without complication, without long-term current use of insulin assessment technician terminal and repeater (current) use of oral hypoglycemic drugs assessment High myopia, both eyes 24 assessment Regular astigmatism of both eyes assessment Presbyopia of both eyes 024 assessment Combined forms of age-related ca taract of both eyes Patient Care Teams Name Effective Dates (start - stop) Status Members No Information
--- OUTSIDE RECORDS SUMMARY | 2024-05-31 06:06 | XMS_ITS | Clinical Summary ---
Author Organization [facility] Address [address] [place] [address]. [place] [address] [place] [address] Care Team Providers Care Youth Care Worker Name Role Phone Ingrid Leger MD Primary Care Provider [phone] Encounters Date Type Department Care Team Description 04/25/2024 8:17 AM INDUSTRIAL TRAINER - 04/25/2024 11:59 PM INDUSTRIAL TRAINER Hospital Encounter [facility] [address] [place] [address] Ingrid Leger MD Discharge Disposition: Home or Self Care (Routine Discharge) 04/25/2024 Travel 04/18/2024 12:42 PM INDUSTRIAL TRAINER - 04/18/2024 11:59 PM INDUSTRIAL TRAINER Hospital Encounter [facility] [place] [address] [address] Ingrid Leger MD Discharge Disposition: Home or Self Care (Routine Discharge) 04/18/2024 Orders Only [facility] [address] [place] [address] [address] Ingrid Leger MD 04/18/2024 Travel 04/09/2024 10:50 AM INDUSTRIAL TRAINER - 04/09/2024 11:59 PM INDUSTRIAL TRAINER Hospital Encounter [facility] [place] [address] [address] Ingrid Leger MD Discharge Disposition: Home or Self Care (Routine Discharge) 04/09/2024 Orders Only [facility] [address] [place] [address] [address] Ingrid Leger MD 04/08/2024 12:15 PM INDUSTRIAL TRAINER - 04/08/2024 11:59 PM INDUSTRIAL TRAINER Hospital Encounter [facility] [address] [address] [place] [address] Ingrid Leger MD Discharge Disposition: Home or Self Care (Routine Discharge) 04/08/2024 Orders Only [facility] [address] [facility] [place] [address] Ingrid Leger MD 04/08/2024 Travel from Last 3 Months Social History Tobacco Use Types Packs/Day Years Used Date Smoking Tobacco: Never Assessed Sex and Gender Information Value Date Recorded Sex Assigned at Not on file Legal Sex Male 12:42 PM CDT Gender Identity Not on file Sexual Orientation Straight 04/18/2024 9: 03 AM INDUSTRIAL TRAINER Plan of Treatment Health Maintenance Due Date Last Done Comments Colorectal Cancer Screening Colonoscopy (10 Years) 1957 Pneumococcal Vaccine: 65+ Years (1 of 2 - PCV) 1963 Diabetes: Retinopathy Eye Exam 1975 DTaP, Tdap and Td Vaccines ( 1 - Tdap) 1976 Zoster Vaccines (1 of 2) 2007 Annual Medicare Wellness Visit 2022 COVID-19 Vaccine (1 - 2023-2 5 season) 2024 Influenza Adult (#1) 2024 Hemoglobin A1C 10/07/2024 04/08/2024, 10/12/2023 Kidney Health Evaluation 10/11/2024 10/12/2023 Lipid Panel 04/08/2025 04/08/2024, 10/12/2023 RSV Immunization or 60+ Years (1 - 1-dose 75+ series) 2032 Hepatitis C Completed 04/18/2024 Meningococcal B Vaccine Aged Out No l onger eligible based on patient's age to complete this topic Meningococcal Vaccine Aged Out No marques lux eligible based on patient's age to complete this topic RSV Immunizations Under 20 Months Aged Out No longer eligible b ased on patient's age to complete this topic Procedures Procedure Name Priority Date/Time Associated Diagnosis Comments US ABD LIMITED Routine 04/25/2024 9:11 AM INDUSTRIAL TRAINER Elevated liver enzymes CYCLIC CITRULLINATED PEPTIDE (CCP)ANTIBODY(IGG) Routine 04/18/2024 1:12 PM INDUSTRIAL TRAINER Abnormal levels of other serum enzymes RHEUMATOID FACTOR, QUANT Routine 04/18/2024 1:12 PM INDUSTRIAL TRAINER Abnormal levels of other serum enzymes HUMAN SERVICES CASE MANAGER ANTIBODY Routine 04/18/2024 1:12 PM INDUSTRIAL TRAINER Abnormal levels of other serum enzymes ANTI-MITOCHONDRIAL AB: Routine 04/18/2024 1:12 PM INDUSTRIAL TRAINER Abnormal levels of other serum enzymes ANTI-SMOOTHMUSCLE AB: Routine 04/18/2024 1:12 PM INDUSTRIAL TRAINER Abnormal levels of other serum enzymes SED RATE, ERYTHROCYTE (ESR) Routine 04/18/2024 1:12 PM INDUSTRIAL TRAINER Abnormal levels of other serum enzymes FERRITIN Routine 04/18/2024 1:12 PM INDUSTRIAL TRAINER Abnormal levels of other serum enzymes IRON SAT PANEL (IRON,IBC,%SAT) Routine 04/18/2024 1:12 PM INDUSTRIAL TRAINER Abnormal levels of other serum enzymes [id number], TOTAL Routine 04/18/2024 1:12 PM INDUSTRIAL TRAINER Abnormal levels of other serum enzymes CERULOPLASMIN Routine 04/18/2024 1:12 PM INDUSTRIAL TRAINER Abnormal levels of other serum enzymes COPPER Routine 04/18/2024 1:12 PM INDUSTRIAL TRAINER Abnormal levels of other serum enzymes ANTINUCLEAR ANTIBODY WI RFX Routine 04/18/2024 1:12 PM INDUSTRIAL TRAINER Abnormal levels of other serum enzymes HEPATITIS PANEL,ACUTE Routine 04/18/2024 1:12 PM INDUSTRIAL TRAINER Abnormal levels of other serum enzymes CRYOGLOBULIN Routine 04/18/2024 1:12 PM INDUSTRIAL TRAINER Abnormal levels of other serum enzymes VITAMIN D, 25 OH Routine 04/18/2024 1:12 PM INDUSTRIAL TRAINER Abnormal levels of other serum enzymes CK (CPK) Routine 04/18/2024 1:12 PM INDUSTRIAL TRAINER Abnormal levels of other serum enzymes SED RATE, ERYTHROCYTE (ESR) Routine 04/09/2024 11:07 AM INDUSTRIAL TRAINER Anesthesia of skin Vitamin D deficiency, unspecified VITAMIN D, 25 OH Routine 04/09/2024 11:0 7 AM INDUSTRIAL TRAINER Anesthesia of skin Vitamin D deficiency, unspecified FOLIC ACID SERUM Routine 04/09/2024 11:0 7 AM INDUSTRIAL TRAINER Anesthesia of skin Vitamin D deficiency, unspecified VITAMIN B-12 Routine 04/09/2024 11:07 AM INDUSTRIAL TRAINER Anesthesia of skin Vitamin D deficiency, unspecified C-REACTIVE PROTEIN Routine 04/09/2024 11 :07 AM INDUSTRIAL TRAINER Anesthesia of skin Vitamin D deficiency, unspecified LIPID PANEL Routine 04/08/2024 12:43 PM INDUSTRIAL TRAINER Type 2 diabetes mellitus without complications (CMS/HCC HHS/HCC) Essential (primary) hypertension HEMOGLOBIN, GLYCOSYLATED Routine 04/08/2024 12:43 PM INDUSTRIAL TRAINER Type 2 diabetes mellitus without complications (CMS/HCC HHS/HCC) Essential (primary) hypertension THYROXINE, FREE (FT4) Routine 04/08/2024 12:43 PM INDUSTRIAL TRAINER Type 2 diabetes mellitus without complications (CMS/HCC HHS/HCC) Essential (primary) hypertension THYROID STIM HORMONE TSH Routine 04/08/2024 12:43 PM INDUSTRIAL TRAINER Type 2 diabetes mellitus without complications (CMS/HCC HHS/HCC) Essential (primary) hypertension FREE T3 Routine 04/08/2024 12:43 PM INDUSTRIAL TRAINER Type 2 diabetes mellitus without complications (CMS/HCC HHS/HCC) Essential (primary) hypertension COMPREHENSIVE METABOLIC PANEL Routine 04/08/2024 12:43 PM INDUSTRIAL TRAINER Type 2 diabetes mellitus without complications (CMS/HCC HHS/HCC) Essential (primary) hypertension CBC W/DIFF AUTOMATED Routine 04/08/2024 12:43 PM INDUSTRIAL TRAINER Type 2 diabetes mellitus without complications (CMS/HCC HHS/HCC) Essential (primary) hypertension from Last 3 Months Results * US ABD LIMITED (04/25/2024 9:11 AM INDUSTRIAL TRAINER) Anatomical Region Laterality Modality Abdomen Ultrasound 04/25/2024 9:45 AM INDUSTRIAL TRAINER Impressions 04/25/2024 9:47 AM INDUSTRIAL TRAINER IMPRESSION: Hepatic steatosis. Otherwise unremarkable. Ordered By: INGRID LEGER Interpreted By: Alvino Esposito MD, 04/25/2024 9:45 AM Narrative 04/25/2024 9:47 AM INDUSTRIAL TRAINER [address] [place] [address] Examination: Ultrasound of the liver. Exam time: 0833 hours. Clinical history: Elevated LFTs. Comparison: None. Technique: Grayscale and color Doppler images including spectral analysis. Findings: The gallbladder appears unremarkable. There are no gallstones. Wall thickness appears normal. There is no pericholecystic fluid. Sonographic Daily sign is reported as negative. There is no intra or extrahepatic biliary ductal dilatation. The common duct measures 4 mm. Sections through the liver demonstrate generalized increase in and coarsening of its echotexture, compatible with steatosis. No hepatic mass is demonstrated. Normal-appearing color flow and spectrum are documented in the portal vein on Doppler. Patency of the hepatic veins is also demonstrated. Limited sections through the pancreas and right kidney are unremarkable. No free fluid is seen. Procedure Note Alvino Esposito MD - 04/25/[address] [place] [address] Examination: Ultrasound of the liver. Exam time: 0833 hours. Clinical history: Elevated LFTs. Comparison: None. Technique: Grayscale and color Doppler images including spectralanalysis. Findings: The gallbladder appears unremarkable. There are no gallstones.Wall thickness appears normal. There is no pericholecystic fluid.Sonographic Daily sign is reported as negative. There is no intra orextrahepatic biliary ductal dilatation. The common duct measures 4 mm.Sections through the liver demonstrate generalized increase in andcoarsening of its echotexture, compatible with steatosis. No hepatic massis demonstrated. Normal-appearing color flow and spectrum are documentedin the portal vein on Doppler. Patency of the hepatic veins is alsodemonstrated. Limited sections through the pancreas and right kidney areunremarkable. No free fluid is seen. IMPRESSION: Hepatic steatosis. Otherwise unremarkable. Ordered By: INGRID LEGER Interpreted By: Alvino Esposito MD, 04/25/2024 9:45 AM Ingrid Leger MD ULTRASOUND Final Result * HUMAN SERVICES CASE MANAGER ANTIBODY (04/18/2024 1:12 PM INDUSTRIAL TRAINER) Pathologist [facility] HUMAN SERVICES CASE MANAGER (U1) AB S/P/B 1.1 0.0 - 4.9 U/mL 04/24/2024 12:55 PM INDUSTRIAL TRAINER [facility] Comment: NEGATIVE: <5 U/mL EQUIVOCAL: 5 to 10 U/mL POSITIVE: >10 U/mL ?AUTOANTIBODIES TO HUMAN SERVICES CASE MANAGER ARE FOUND IN GREATER THAN 95% OF PATIENTS WITH MIXED CONNECTIVE TISSUE DISEASE (MCTD), BUT ARE ALSO SEEN IN SYSTEMIC LUPUS ERYTHEMATOUS (40%), RHEUMATOID ARTHRITIS (10%), SCLERODERMA SYNDROME (10%), AND RARELY IN DRUG INDUCED LUPUS AND SJOGREN'S SYNDROME. ABSENCE OF HUMAN SERVICES CASE MANAGER ANTIBODIES USUALLY RULES OUT MCTD. 04/18/2024 1:12 PM INDUSTRIAL TRAINER Ingrid Leger MD LABORATORY Final Result [facility] [address] [place] [address], [id number] * ANTINUCLEAR ANTIBODY WI RFX (04/18/2024 1:12 PM INDUSTRIAL TRAINER) CHEATN 0.2 04/22/2024 1:44 PM INDUSTRIAL TRAINER [facility] Comment: NEGATIVE: <0.7 RATIO CHETAN PROFILE AND TITER NOT PERFORMED THE CHETAN SCREEN TESTS FOR THE FOLLOWING ANTIBODIES BY EIA: SSA1 (RO), SSB1 (LA), LINDSEY, SCL70, JO1, CENTROMERE, HUMAN SERVICES CASE MANAGER HISTONE MUST BE ORDERED SEPARATELY DNA (DS) ANTIBODY 0.9 IU/ML 024 1:44 PM INDUSTRIAL TRAINER [facility] Comment: NEGATIVE: <10 IU/mL EQUIVOCAL: 10 to 15 IU/mL POSITIVE: >15 IU/mL THIS QUANTITATIVE ASSAY IS CALIBRATED TO THE [employer]'S WO/80 STANDARD. THE LEVEL OF dsDNA AUTOANTIBODY GERERALLY CORRELATES WITH THE LEVEL OF DISEASE ACTIVITY IN SYSTEMIC LUPUS ERYTHMATOSUS 04/18/2024 1:12 PM INDUSTRIAL TRAINER us Ingrid Leger MD LABORATORY Final Result Performing Organization Address [facility]/ZIP Co de Phone Number [facility] [address] [place] [address], [id number] * RHEUMATOID FACTOR, QUANT (04/18/2024 1:12 PM INDUSTRIAL TRAINER) RHEUMATOID FACTOR <10 <15 IU/ML 04/19/2024 1:28 PM INDUSTRIAL TRAINER [facility] 04/18/2024 1:12 PM INDUSTRIAL TRAINER us Ingrid Leger MD LABORATORY Final Result Performing Organization Address [facility] de Phone Number [facility] [address] [place] [address], [id number] * CYCLIC CITRULLINATED PEPTIDE (CCP)ANTIBODY(IGG) (04/18/2024 1:12 PM INDUSTRIAL TRAINER) CITRULLINE PEPTIDE ANTIBODY <16 <20 Units 04/23/2024 8:54 PM INDUSTRIAL TRAINER [facility] Comment: Negative: ? <20 Weak Positive: ?20 - 39 Moderate Positive: ?40 - 59 Strong Positive: ?>59 Test Performed by [facility], [employer], [address] [place], [place] Janes Loving M.D., Ph.D., Director of Laboratories , CLIA [id number] 04/18/2024 1:12 PM INDUSTRIAL TRAINER Ingrid Leger MD LABORATORY Final Result Performing Organization Address City/[facility]/ZIP Co de Phone Number [facility] [address] [place], [place] , [place] [phone] * ANTI-SMOOTHMUSCLE AB: (04/18/2024 1:12 PM INDUSTRIAL TRAINER) ACTIN (SMOOTH MUSCLE) AB <20 <20 U 04/21/2024 9:41 PM INDUSTRIAL TRAINER [facility] Comment: Reference Range: ??<20 U: Negative >or=20 U: Positive Antibodies recognizing actin are the main component of smooth muscle antibodies associated with auto- immune liver disease. Actin antibodies are found in approximately 75% of patients with autoimmune hepatitis (AIH) type 1, approximately 65% of patients with autoimmune cholangitis, approximately 30% of patients with primary biliary cirrhosis and approximately 2% of healthy controls. High values are closely correlated with AIH type 1. Test Performed by [employer], [employer], [address] [place] [address] Janes Loving M.D., Ph.D., Director of Laboratories , CLIA [id number] 04/18/2024 1:12 PM INDUSTRIAL TRAINER us Ingrid Leger MD LABORATORY Final Result Performing Organization Address [facility]/ZIP Co de Phone Number [facility] [address] [place], [place] , [place] [phone] * MITOCHONDRIAL AB WITH REFLEX TO TITER (04/18/2024 1:12 PM INDUSTRIAL TRAINER) ANTI-MITOCHONDRI AL AB Negative Negative 04/23/2024 9:40 PM INDUSTRIAL TRAINER [facility] Comment: Test Performed by Mitchell Oden, [employer] [facility], [address] [place] [address] Janes Loving M.D., Ph.D., Director of Laboratories , [facility] [id number] 04/18/2024 1:12 PM INDUSTRIAL TRAINER us Ingrid Leger MD LABORATORY Final Result [facility] [address] , [place] [phone] * (ABNORMAL) IRON SATURATION PNL (FE/TIBC/SAT) (04/18/2024 1:12 PM INDUSTRIAL TRAINER) Pathologist [facility] IRON 60(L) 65 - 175 MCG/DL 04/18/2024 2:37 PM INDUSTRIAL TRAINER [facility] IRON BINDING CAPACITY 301 250 - 450 MCG/DL 04/18/2024 2:37 PM INDUSTRIAL TRAINER [facility] IRON SATURATION 20 % 2:37 PM INDUSTRIAL TRAINER [facility] Comment:REFERENCE RANGE NOT ESTABLISHED 04/18/2024 1:12 PM INDUSTRIAL TRAINER us Ingrid Leger MD LABORATORY Final Result [facility] [address] [place] [address], [place] [phone] * (ABNORMAL) SED RATE, ERYTHROCYTE (ESR) (04/18/2024 1:12 PM INDUSTRIAL TRAINER) Only the most recent of2 resultswithin the time period is included. Pathologist [facility] ESR 16(H) 0 - 15 MM/HR 04/18/2024 2:11 PM INDUSTRIAL TRAINER [facility] 04/18/2024 1:12 PM INDUSTRIAL TRAINER us Ingrid Leger MD LABORATORY Final Result [facility] [address] [place] [address], * HEPATITIS PANEL,ACUTE (04/18/2024 1:12 PM INDUSTRIAL TRAINER) HEPATITIS B SURFACE AG NON-REACT PETRONA NON-REACT PETRONA 04/19/2024 5:30 PM INDUSTRIAL TRAINER [facility] Comment:HBsAg NOT DETECTED. HEP B CORE IGM NON-REACT PETRONA NON-REACT PETRONA 04/19/2024 5:30 PM INDUSTRIAL TRAINER [facility] Comment: IgM ANTI HBc NOT DETECTED. DOES NOT EXCLUDE THE POSSIBILITY OF EXPOSURE TO OR INFECTION WITH HBV. NO RETEST REQUIRED. HIGH DOSES OF BIOTIN MAY INTERFERE WITH THIS TEST RESULT. CORRELATION TO CLINICAL HISTORY AND PRESENTATION RECOMMENDED. HAV IGM NON-REACT PETRONA NON-REACT PETRONA 04/19/2024 5:30 PM INDUSTRIAL TRAINER [facility] Comment: IgM ANTI HAV NOT DETECTED. DOES NOT EXCLUDE THE POSSIBILITY OF EXPOSURE TO OR INFECTION WITH HAV. LEVELS OF IgM ANTI HAV MAY BE BELOW THE CUTOFF IN EARLY INFECTION. HEPATITIS C AB NON-REACT PETRONA NON-REACT PETRONA 04/19/2024 5:30 PM INDUSTRIAL TRAINER [facility] Comment: ANTIBODIES TO HCV NOT DETECTED. DOES NOT EXCLUDE THE POSSIBILITY OF EXPOSURE TO HCV. 04/18/2024 1:12 PM INDUSTRIAL TRAINER us Ingrid Leger MD LABORATORY Final Result [facility] [address] [place] [address], [place] [phone] * (ABNORMAL) VITAMIN D, 25 OH (04/18/2024 1:12 PM INDUSTRIAL TRAINER) Only the most recent of2 resultswithin the time period is included. VITAMIN D 25 HYDROXY TOTAL S/P/B 82.5(H) 20.0 - 50.0 NG/ML 04/19/2024 1:16 PM INDUSTRIAL TRAINER [facility] Comment: <10 ng/mL (Severe deficiency) 10 TO 19 ng/mL (Mild to Moderate deficiency) 20 TO 50 ng/mL (Optimum levels) 51 TO 80 ng/mL (Increased risk of hypercalciuria) >80 ng/mL (Toxicity possible) 04/18/2024 1:12 PM INDUSTRIAL TRAINER us Ingrid Leger MD LABORATORY Final Result [facility] [address] [place] [address], [place] [phone] * FERRITIN (04/18/2024 1:12 PM INDUSTRIAL TRAINER) FERRITIN 336.4 26 - 388 NG/ML 04/18/2024 1:59 PM INDUSTRIAL TRAINER [facility] 04/18/2024 1:12 PM INDUSTRIAL TRAINER us Ingrid Leger MD LABORATORY Final Result Performing Organization Address [facility] Co de Phone Number [facility] [address] [place] [address], [place] [phone] * CRYOGLOBULIN (%CRYOCRIT) (04/18/2024 1:12 PM INDUSTRIAL TRAINER) CRYOGLOBULIN QL S/P/B Negative Negative 04/24/2024 10:07 PM INDUSTRIAL TRAINER [facility] Comment: The Cryocrit is primarily intended for following a patient with previously defined and quantitated cryoglobulins. The cryocrit may consist of cryoglobulins, fibrins, complement, or mixtures of these. Test Performed by Mitchell Oden, [facility], [address] [place], [place] Janes Loving M.D., Ph.D., Director of Laboratories , CLIA [id number] % CRYOCRIT END OF REPORT 04/24/2024 10:07 PM INDUSTRIAL TRAINER [facility] 04/18/2024 1:12 PM INDUSTRIAL TRAINER us Ingrid Leger MD LABORATORY Final Result Performing Organization Address [facility]/ZIP Co de Phone Number [facility] [address] [place], [place] , [place] [phone] * COPPER (04/18/2024 1:12 PM INDUSTRIAL TRAINER) COPPER S/P/B 112 70 - 175 mcg/dL 04/21/2024 11:48 AM INDUSTRIAL TRAINER [facility] Comment: This test was developed and its analytical performance characteristics have been determined by [employer] [place], [place]. It has not been cleared or approved by the U.S. Food and Drug Administration. This assay has been validated pursuant to the CLIA regulations and is used for clinical purposes. Test Performed by [facility], [employer] [facility], [address] [place], [place] Janes Loving M.D., Ph.D., Director of Laboratories , CLIA [id number] 04/18/2024 1:12 PM INDUSTRIAL TRAINER us Ingrid Leger MD LABORATORY Final Result Performing Organization Address [facility] Co de Phone Number [employer] [address] [place], [place] , [place] [phone] * (ABNORMAL) CK (CPK) (04/18/2024 1:12 PM INDUSTRIAL TRAINER) CPK 35(L) 39 - 308 U/L 04/18/2024 1:59 PM INDUSTRIAL TRAINER [facility] 04/18/2024 1:12 PM INDUSTRIAL TRAINER us Ingrid Leger MD LABORATORY Final Result Performing Organization Address City/[facility]/ZIP Co de Phone Number [facility] [address] [place] [address], [place] [phone] * CERULOPLASMIN (04/18/2024 1:12 PM INDUSTRIAL TRAINER) CERULOPLASMIN 27 14 - 30 mg/dL 04/23/2024 7:42 PM INDUSTRIAL TRAINER [facility] Comment: Test Performed by [facility], [employer], [address] [place] [address] Janes Loving M.D., Ph.D., Director of Laboratories , CLIA [id number] 04/18/2024 1:12 PM INDUSTRIAL TRAINER us Ingrid Leger MD LABORATORY Final Result Performing Organization Address [facility]/ZIP Co de Phone Number [facility] , [place] [phone] * PYSGO-0-EUYTWYZYNGO TOTAL (04/18/2024 1:12 PM INDUSTRIAL TRAINER) C-4-IGHQKSMCASU QUANT 141 83 - 199 mg/dL 04/23/2024 7:42 PM INDUSTRIAL TRAINER [employer] [facility] Comment: Test Performed by [facility], [employer], [address] [place] [address] Janes Loving M.D., Ph.D., Director of Laboratories , CLIA [id number] 04/18/2024 1:12 PM INDUSTRIAL TRAINER us Ingrid Leger MD LABORATORY Final Result [facility] , [place] [phone] * (ABNORMAL) VITAMIN B-12 (04/09/2024 11:07 AM INDUSTRIAL TRAINER) VITAMIN B12 S/P/B 2,726(H) 193 - 986 PG/ML 04/10/2024 1:56 PM INDUSTRIAL TRAINER [facility] 04/09/2024 11:0 7 AM INDUSTRIAL TRAINER us Ingrid Leger MD LABORATORY Final Result Performing Organization Address [facility] Co de Phone Number [facility] [address] [place] [address], [place] [phone] * (ABNORMAL) C-REACTIVE PROTEIN (04/09/2024 11:07 AM INDUSTRIAL TRAINER) C-REACTIVE PROTEIN 4.36(H) <0.30 mg/dL 04/09/2024 11:36 AM INDUSTRIAL TRAINER [facility] 04/09/2024 11:0 7 AM INDUSTRIAL TRAINER us Ingrid Leger MD LABORATORY Final Result Performing Organization Address [facility] Co de Phone Number [facility] [place] [address], [place] [phone] * (ABNORMAL) FOLIC ACID SERUM (04/09/2024 11:07 AM INDUSTRIAL TRAINER) FOLATE 32.7(H) 3.1 - 17.5 NG/ML 04/10/2024 1:56 PM INDUSTRIAL TRAINER [facility] 04/09/2024 11:0 7 AM INDUSTRIAL TRAINER us Ingrid Leger MD LABORATORY Final Result Performing Organization Address [facility] Co de Phone Number [facility] [address] [place] [address], [place] [phone] * (ABNORMAL) HEMOGLOBIN, GLYCOSYLATED (04/08/2024 12:43 PM INDUSTRIAL TRAINER) HGB A1C 6.4(H) <5.7 % 04/09/2024 12:43 PM INDUSTRIAL TRAINER [facility] ESTIMATED AVG GLUCOSE 137(H) 74 - 114 MG/DL 04/09/2024 12:43 PM INDUSTRIAL TRAINER [facility] 04/08/2024 12:4 3 PM INDUSTRIAL TRAINER us Ingrid Leger MD LABORATORY Final Result Performing Organization Address [facility] Co de Phone Number [facility] [address] [place] [address], [id number] * FREE T3 (04/08/2024 12:43 PM INDUSTRIAL TRAINER) FREE T3 2.2 2.2 - 3.9 PG/ML 04/09/2024 1:00 PM INDUSTRIAL TRAINER [facility] 04/08/2024 12:4 3 PM INDUSTRIAL TRAINER us Ingrid Leger MD LABORATORY Final Result Performing Organization Address [facility] de Phone Number [facility] [address] [place] [address], [place] [phone] * (ABNORMAL) COMPREHENSIVE METABOLIC PANEL (04/08/2024 12:43 PM INDUSTRIAL TRAINER) SODIUM S/P/B 138 136 - 145 MMOL/L 04/08/2024 1:14 PM [facility] POTASSIUM S/P/B 4.4 3.5 - 5.1 MMOL/L 04/08/2024 1:14 PM [facility] CHLORIDE S/P/B 100 98 - 107 MMOL/L 04/08/2024 1:14 PM [facility] CO2 29.8 21.0 - 32.0 MMOL/L 04/08/2024 1:14 PM [facility] GLUCOSE 112(H) 70 - 99 MG/DL 04/08/2024 1:14 PM [facility] Comment: FASTING GLUCOSE 100 TO 125 MG/DL IS CONSISTENT WITH IMPAIRED FASTING GLUCOSE. FASTING GLUCOSE >125 MG/DL IS CONSISTENT WITH DIABETES. RANDOM GLUCOSE >200 MG/DL WITH HYPERGLYCEMIC SYMPTOMS IS CONSISTENT WITH DIABETES. PER ADA GUIDELINES BUN 17 6 - 24 MG/DL 04/08/2024 1:14 PM [facility] CREATININE S/P/B 0.93 0.70 - 1.30 MG/DL 04/08/2024 1:14 PM [facility] CALCIUM S/P/B 9.0 8.4 - 10.5 MG/DL 04/08/2024 1:14 PM [facility] BILIRUBIN TOTAL S/P/B 0.7 0.2 - 1.0 MG/DL 04/08/2024 1:14 PM [facility] Comment: THIS ASSAY IS NOT RECOMMENDED FOR PATIENTS UNDERGOING TREATMENT WITH ELTROMBOPAG DUE TO THE POTENTIAL FOR FALSELY ELEVATED RESULTS. ALKALINE PHOSPHATASE S/P/B 141(H) 45 - 115 U/L 04/08/2024 1:14 PM [facility] AST 34 15 - 37 U/L 04/08/2024 1:14 PM [facility] ALT 71(H) 16 - 63 U/L 04/08/2024 1:14 PM [facility] TOTAL PROTEIN S/P/B 7.9 6.4 - 8.2 G/DL 04/08/2024 1:14 PM [facility] ALBUMIN S/P/B 3.8 3.4 - 5.0 G/DL 04/08/2024 1:14 PM [facility] ANION GAP 8.2 5.0 - 15.0 MMOL/L 04/08/2024 1:14 PM [facility] OSMOLALITY (CALC) 288 MOSM/KG 024 1:14 PM [facility] Comment:REFERENCE RANGE NOT ESTABLISHED GFR ESTIMATE 90 >89 ML/MIN/1. 73 M2 04/08/2024 1:14 PM [facility] GFR NOTES GFR REFERENCE S: 04/08/2024 1:14 PM [facility] Comment: THE ESTIMATED GFR IS CALCULATED USING THE 2020 CKD-EPI EQUATION. THE FOLLOWING CATEGORIES FOR GRADING RENAL FUNCTION ARE RECOMMENDED BY THE INTERNATIONAL SOCIETY OF NEPHROLOGY (KDIGO 2012 CLINICAL PRACTICE GUIDELINE). G1,NORMAL OR HIGH: >89 ml/min/1.73 m2 G2,MILDLY DECREASED: 60-89 ml/min/1.73 m2 G3A,MILDLY TO MODERATELY DECREASED: 45-59 ml/min/1.73 m2 G3B,MODERATELY TO SEVERELY DECREASED: 30-44 ml/min/1.73 m2 G4,SEVERELY DECREASED: 15-29 ml/min/1.73 m2 G5,KIDNEY FAILURE: <15 ml/min/1.73 m2 04/08/2024 12:4 3 PM INDUSTRIAL TRAINER us Ingrid Leger MD LABORATORY Final Result [facility] [address] [place] [address], * (ABNORMAL) LIPID PANEL (04/08/2024 12:43 PM INDUSTRIAL TRAINER) CHOLESTEROL 143 MG/DL 04/09/2024 12:54 PM INDUSTRIAL TRAINER [facility] Comment:DESIRABLE: <200 TRIGLYCERIDES 165 MG/DL 04/09/2024 12:54 PM INDUSTRIAL TRAINER [facility] Comment:150-199 BORDERLINE H IGH HDL 33(L) >39 MG/DL 04/09/2024 12:54 PM INDUSTRIAL TRAINER [facility] LDL-C 77 MG/DL 04/09/2024 12:54 PM INDUSTRIAL TRAINER [facility] Comment:<100 OPTIMAL VLDL CALCULATION 33 MG/DL 04/09/20 12:54 PM INDUSTRIAL TRAINER [facility] Comment:REFERENCE RANGE NOT ESTABLISHED CHOL/HDL RATIO 4.3 04/09/2024 12:54 PM INDUSTRIAL TRAINER [facility] Comment:REFERENCE RANGE NOT ESTABLISHED LDL/HDL 2.3 04/09/2024 12:54 PM INDUSTRIAL TRAINER [facility] Comment:REFERENCE RANGE NOT ESTABLISHED NON HDL CHOLESTEROL 110 MG/DL 04/09/2024 12:54 PM INDUSTRIAL TRAINER [facility] Comment:REFERENCE RANGE NOT ESTABLISHED 04/08/2024 12:4 3 PM INDUSTRIAL TRAINER us Ingrid Leger MD LABORATORY Final Result [facility] [address] [place] [address], [id number] * CBC W/DIFF AUTOMATED (04/08/2024 12:43 PM INDUSTRIAL TRAINER) WBC 7.31 4.00 - 10.80 x10'3/uL 04/08/2024 12:49 PM INDUSTRIAL TRAINER [facility] RBC 5.12 4.50 - 6.10 x10'6/uL 04/08/2024 12:49 PM [facility] HGB 14.5 13.0 - 18.0 G/DL 04/08/2024 12:49 PM [facility] HCT 43.7 37.0 - 52.0 % 04/08/2024 12:49 PM [facility] MCV 85.4 78.0 - 100.0 FL 04/08/2024 12:49 PM [facility] MCH 28.3 27.0 - 31.0 PG 04/08/2024 12:49 PM [facility] MCHC 33.2 33.0 - 36.0 G/DL 04/08/2024 12:49 PM [facility] RDW 13.2 11.5 - 14.5 % 04/08/2024 12:49 PM [facility] PLT 286 150 - 350 x10'3/uL 04/08/2024 12:49 PM [facility] MPV 9.1 7.4 - 10.4 FL 04/08/2024 12:49 PM [facility] CBC COMMENT NORMAL REFERENCE RANGE NOT ESTABLISHED FOR THE PROPORTIONAL LEUKOCYTE DIFFERENTIAL. 04/08/2024 12:49 PM [facility] NEUTROPHILS % 58.5 % 04/08/2024 12:49 PM INDUSTRIAL TRAINER [facility] LYMPHOCYTES % 29.4 % 04/08/2024 12:49 PM [facility] MONOCYTES % 9.6 % 04/08/2024 12:49 PM INDUSTRIAL TRAINER [facility] EOSINOPHILS % 1.4 % 04/08/2024 12:49 PM INDUSTRIAL TRAINER [facility] BASOPHILS % 0.8 % 04/08/2024 12:49 PM INDUSTRIAL TRAINER [facility] IMMATURE GRANS % 0.3 % 04/08/20 12:49 PM INDUSTRIAL TRAINER [facility] NRBC % 0.0 % 04/08/2024 12:49 PM INDUSTRIAL TRAINER [facility] ABS. NEUTROPHILS 4.28 1.60 - 8.30 x10'3/uL 04/08/2024 12:49 PM INDUSTRIAL TRAINER [facility] ABS. LYMPHOCYTES 2.15 0.80 - 4.70 x10'3/uL 04/08/2024 12:49 PM INDUSTRIAL TRAINER [facility] ABS. MONOCYTES 0.70 0.00 - 1.50 x10'3/uL 04/08/2024 12:49 PM INDUSTRIAL TRAINER [facility] ABS. EOSINOPHILS 0.10 0.00 - 0.40 x10'3/uL 04/08/2024 12:49 PM INDUSTRIAL TRAINER [facility] ABS. BASOPHILS 0.06 0.00 - 0.20 x10'3/uL 04/08/2024 12:49 PM INDUSTRIAL TRAINER [facility] ABS. IMMATURE GRANULOCYTES 0.02 0.00 - 0.03 x10'3/uL 04/08/2024 12:49 PM INDUSTRIAL TRAINER [facility] ABS. NUCLEATED RBC'S 0.00 0.00 - 0.01 x10'3/uL 04/08/2024 12:49 PM INDUSTRIAL TRAINER [facility] 04/08/2024 12:4 3 PM INDUSTRIAL TRAINER us Ingrid Leger MD LABORATORY Final Result [facility] [address] [place] [address], * THYROXINE, FREE (FT4) (04/08/2024 12:43 PM INDUSTRIAL TRAINER) FREE T4 1.09 0.76 - 1.46 NG/DL 04/08/2024 1:14 PM INDUSTRIAL TRAINER [facility] 04/08/2024 12:4 3 PM INDUSTRIAL TRAINER Ingrid Leger MD LABORATORY Final Result Performing Organization Address City/[facility]/ZIP Co de Phone Number [facility] [address] [place] [address], * THYROID STIM HORMONE TSH (04/08/2024 12:43 PM INDUSTRIAL TRAINER) TSH 1.398 0.358 - 3.740 uIU/ML 04/08/2024 1:14 PM INDUSTRIAL TRAINER [facility] Comment: ASSAY PERFORMED BY CHEMILUMINESCENT IMMUNOASSAY METHODOLOGY USING SIEMENS DIMENSION REAGENT. PATIENT RESULTS DETERMINED BY ASSAYS FROM DIFFERENT MANUFACTURERS AND/OR BY DIFFERENT METHODS MAY NOT BE COMPARABLE. 04/08/2024 12:4 3 PM INDUSTRIAL TRAINER Ingrid Leger MD LABORATORY Final Result Performing Organization Address [facility] Co de Phone Number [facility] [address] [place] [address], from Last 3 Months Insurance [employer] Care Teams Youth Care Worker Relationship Specialty Start Date End Date Ingrid Leger MD [address] [place] [phone] PCP - General INTERNAL MEDICINE 10/12/23
--- OUTSIDE RECORDS SUMMARY | 2024-05-31 06:06 | XMS_ITS | Referral Summary ---
Author Organization [place] [address] [address] [place] [phone] Care Team Providers Care Maintenance Mechanic Telephone Name Role Phone Sarath Leger MD Primary Care Provider + [phone] Encounters Date Type Department Care Team Description 05/17/2024 Orders Only [facility] Medical [facility] Cardiology [address] [place] [address] [address] [place] [phone] ProviderKady MD 05/16/2024 2:30 PM [employer] Ancillary Procedure [place] [address] [place] [phone] PVC's (premature ventricular contractions); Palpitations 05/16/2024 1:15 PM [employer] Office Visit [place] [address] [place] [phone] Gibson Shankar MD PVC's (premature ventricular contractions) (Primary Dx); Atherosclerosis of [place] coronary artery of [place] heart without angina pectoris; Palpitations; ALIREZA (obstructive sleep apnea); Hypertension associated with diabetes (HCC); Hyperlipidemia associated with type 2 diabetes mellitus (HCC); Nonrheumatic tricuspid valve regurgitation; Former smoker from Last 3 Months Allergies No known active allergies Medications aspirin [...] PVC's (premature ventricular contractions) 05/16 Atherosclerosis of [place] co ronary artery of [place] heart without angina pectoris 05/16/2024 Social History Tobacco Use Types Packs/Day Years Used Date Smoking Tobacco: Former Cigarettes 1.5 10 S tarted: 1984 Passive Smoke Exposure: Past Tobacco Cessation:Counseling Given: Not Answered Sex and Gender Information Value Date Recorded Sex Assigned at Not on file Legal Sex Male 10:09 AM CDT Gender Identity Not on file Sexual Orientation Not on file Last Filed Vital Signs Vital Sign Reading Time Taken Comments Blood Pressure 110/66 05/16/2024 1:07 PM [employer] Pulse 93 05/16/2024 1:07 PM [employer] Temperature - - Respiratory Rate - - Oxygen Saturation 94% 05/16/2024 1:07 PM [employer] Inhaled Oxygen Concentration - - Weight 80.7 kg (178 lb) 05/16/2024 1:07 PM [employer] Height 175.3 cm (5' 9 ) 05/16/2024 1:07 PM [employer] Body Mass Index 26.29 05/16/2024 1:07 PM [employer] Plan of Treatment Not on file Procedures Procedure Name Priority Date/Time Associated Diagnosis Comments ELECTROCARDIOGRAM REPORT Routine 025 3:43 PM [employer] Atherosclerosis of [place] coronary artery of [place] heart without angina pectoris PVC's (premature ventricular contractions) Palpitations LIPID PANEL Routine 10/12/2023 4:15 PM CDT from Last 3 Months or Most Recently Relevant to Health Maintenance Results * Electrocardiogram Report (05/16/2024 3:43 PM [employer]) Gibson Shankar MD ECG ORDERABLES Final Res [...] Insurance [employer] CHOICE MEDICARE PPO Care Teams Maintenance Mechanic Telephone Relationship Specialty Start Date End Date Sarath Leger MD [address] [place] [address] PCP - General Internal Medicine 12/29/23
== END 2024-05-30 15:37 | disposition home or self-care (01) ==
LOC: ANHIMG 15:47
PROVIDERS: Visit Provider Internal Medicine Cardiovascular Disease
DX: Z13.89 Encounter for screening for other disorder (principal); Z87.891 Personal history of nicotine dependence
CPT/HCPCS: 76706

== ENCOUNTER 2024-07-02 00:17 | Day surgery (SDC) | payer MEDICARE, SELFPAY ==
[2024-07-01 16:29] VITALS: BMI 26.6
[2024-07-02] VITALS (16 sets, daily range): BP systolic 104–130; BP diastolic 63–84; PULSE 69–80; RESP 16–18; O2SAT 93–96; BMI 26.0
--- OUTSIDE RECORDS SUMMARY | 2024-07-02 00:21 | XMS_ITS | Clinical Summary ---
Author Organization [facility] [address] Address [address] [place] [address] Care Team Providers Care Informatics Developer Name Role Phone Sarath Leger MD Primary Care Provider + [phone] Allergies No known active allergies Medications aspirin [...] % cream Apply topically daily Active lisinopriL (PRINIVIL,ZESTRI L) 10 mg tablet Take 1 tablet (10 [...] daily as needed for erectile dysfunction Active multivitamin-min -FA-ginkgo 400-120 mcg-mg tablet Take by mouth Active predniSONE (DELTASONE) 5 mg tablet Active metoprolol tartrate (LOPRESSOR) 25 mg immediate release tabletIndication s:PVC's (premature ventricular contractions) Take 0.5 tablets (12.5 mg total) by mouth 2 (two) times a day 30 tablet 11 5 06/07/19 26 Active Active Problems Problem Noted Date Diagnosed Date Former smoker 05/16/2024 Nonrheumatic tricuspid valve regurgitation 05/16 Hyperlipidemia associated with type 2 diabetes m ellitus 05/16/2024 Hypertension associated with diabetes 05/16/2024 ALIREZA (obstructive sleep apnea) 05/16/2024 Palpitations 05/16/2024 PVC's (premature ventricular contractions) 05/16 Atherosclerosis of [place] co ronary artery of [place] heart without angina pectoris 05/16/2024 Encounters Date Type Department Care Team Description 06/07/2024 Telephone [facility] Cardiology [address] [place] [phone] Gila Cerna MD 06/05/2024 11:15 AM CHEMICAL EQUIPMENT SALES ENGINEER Ancillary Procedure [facility] Cardiology [address] [place] [phone] Atherosclerosis of [place] coronary artery of [place] heart without angina pectoris; Hypertension associated with diabetes (HCC); Nonrheumatic tricuspid valve regurgitation 05/30/2024 Orders Only [facility] Health Information Management [address] [place] [id number] Gila Cerna MD 05/17/2024 Orders Only [facility] Cardiology [address] [place] [phone] ProviderKady MD 05/16/2024 2:30 PM CHEMICAL EQUIPMENT SALES ENGINEER Ancillary Procedure [facility] Cardiology [address] [place] [phone] PVC's (premature ventricular contractions); Palpitations 05/16/2024 1:15 PM CHEMICAL EQUIPMENT SALES ENGINEER Office Visit [facility] Cardiology [address] [place] [phone] Gila Cerna MD PVC's (premature ventricular contractions) (Primary Dx); Atherosclerosis of [place] coronary artery of [place] heart without angina pectoris; Palpitations; ALIREZA (obstructive [...] Comments Blood Pressure 110/66 05/16/2024 1:07 PM CHEMICAL EQUIPMENT SALES ENGINEER Pulse 93 05/16/2024 1:07 PM CHEMICAL EQUIPMENT SALES ENGINEER Temperature - - Respiratory Rate - - Oxygen Saturation 94% 05/16/2024 1:07 PM CHEMICAL EQUIPMENT SALES ENGINEER Inhaled Oxygen Concentration - - Weight 80.7 kg (178 lb) 05/16/2024 1:07 PM CHEMICAL EQUIPMENT SALES ENGINEER Height 175.3 cm (5' 9 ) 05/16/2024 1:07 PM CHEMICAL EQUIPMENT SALES ENGINEER Body Mass Index 26.29 05/16/2024 1:07 PM CHEMICAL EQUIPMENT SALES ENGINEER Plan of Treatment Health Maintenance Due Date Last Done Comments Albumin Creatinine Ratio, Urine 1955 Colon Cancer Screening-Colonoscopy 1955 Depression Screening 1957 Fall Risk Assessment 1955 Hemoglobin A1C 1957 Hepatitis C Screening 1957 Prostate Cancer Screening-PSA 1955 eGFR 1955 Dilated Eye Exam 1957 Foot Exam 1957 DTaP/Tdap/Td Vaccine (1 - Tdap) 1968 Hepatitis B Screening 1975 Zoster Vaccine (1 of 2) 2007 Abdominal Aortic Aneurysm (AAA) Screen 2022 Well Visit 65+ 2022 Lipid Panel 04/08/2025 04/08/2024, 10/12/2023 Influenza Vaccine Completed 2024 Pneumococcal vaccine 65+ Completed 05/28/2024 Procedures Procedure Name Priority Date/Time Associated Diagnosis Comments TRANSTHORACIC ECHO (TTE) COMPLETE W DOPPLER/CF WO CONTRAST Routine 06/05/2024 11:30 AM CHEMICAL EQUIPMENT SALES ENGINEER Atherosclerosis of [place] coronary artery of [place] heart without angina pectoris Hypertension associated with diabetes (HCC) Nonrheumatic tricuspid valve regurgitation SCAN - RADIOLOGY/IMAGING 05/30/2024 ELECTROCARDIOGRAM REPORT Routine 025 3:43 PM CHEMICAL EQUIPMENT SALES ENGINEER Atherosclerosis of [place] coronary artery of [place] heart without angina pectoris PVC's (premature ventricular contractions) Palpitations MCT - MOBILE CARDIAC TELEMETRY EVENT MONITOR Routine 05/16/2024 2:32 PM CHEMICAL EQUIPMENT SALES ENGINEER PVC's (premature ventricular contractions) Palpitations LIPID PANEL Routine 10/12/2023 4:15 PM CDT from Last 3 Months or Most Recently Relevant to Health Maintenance Results * TRANSTHORACIC ECHO (TTE) COMPLETE W DOPPLER/CF WO CONTRAST (06/05/2024 11:30 AM CHEMICAL EQUIPMENT SALES ENGINEER) LV EF 45-50 % CONS SCIMAGE Anatomical Region Laterality Modality Ultrasound 06/05/2024 11:0 0 AM CHEMICAL EQUIPMENT SALES ENGINEER Narrative 06/05/2024 4:18 PM CHEMICAL EQUIPMENT SALES ENGINEER [facility] [address], [place], [place] [id number] [phone] [facility] [address], [place] [address] P:[phone] P:[phone] Echocardiographic Report Patient Name: ALBERT ODONNELL : 1955 Study Date: 06/05/2024 11:00:41 AM Gender: M Tech: SW Location: [facility] Provider: GILA CERNA Height(Cm): 150 BSA: 1.83 Weight(Kg): 80.7 Heart Rate: 79 BP: 110 / 66 Quality: Good Order Provider: GILA CERNA PROCEDURES: Echocardiographic Report: Transthoracic echocardiogram with complete 2D, M-Mode, and color Doppler examination. With Strain Analysis. INDICATIONS: Diabetes, Hypertension, I25.10 Atherosclerotic heart disease of [place] coronary artery without angina pectoris, and I36.1 Nonrheumatic tricuspid (valve) insufficiency. MEASUREMENTS: 2D/MM Value Range Doppler Value Range EF Mod BP 46 % [ 52 - 72 ] BHAVIK Vmax 2.10 cm2 [ 2.00 - 4.00 ] EF Teich MM 50 % [ 52 - 72 ] AV Mean PG 5 mmHg Estimated EF 45-50 % AV Peak Quentin 1.53 m/s [ 1.00 - 1.70 ] LVIDd 2D 4.99 cm [ 4.20 - 5.80 ] AV Peak PG 9 mmHg LVIDd MM 5.73 cm [ 4.20 - 5.80 ] AV VTI 31.29 cm LVIDs 2D 3.62 cm [ 2.50 - 4.00 ] LVOT Diam 1.98 cm [ 1.70 - 2.10 ] LVIDs MM 4.26 cm [ 2.50 - 4.00 ] LVOT Peak Quentin 1.04 m/s [ 0.70 - 1.10 ] LVPWd 2D 1.07 cm [ 0.60 - 1.00 ] LVOT VTI 23.23 cm LVPWd MM 0.67 cm [ 0.60 - 1.00 ] MV E Peak Quentin 0.70 m/s [ 0.60 - 1.30 ] IVSd 2D 1.04 cm [ 0.60 - 1.00 ] MV A Peak Quentin 1.08 m/s [ 1.00 - 1.20 ] IVSd MM 0.89 cm [ 0.60 - 1.00 ] MV Decel Time 197 msec [ 104 - 258 ] LA Dimension MM 4.11 cm [ 3.00 - 4.00 ] PV Peak Quentin 1.33 m/s [ 0.40 - 0.80 ] AoR Diam MM 3.68 cm [ 3.10 - 3.70 ] TR Peak Quentin 2.31 m/s [ 1.00 - 2.80 ] LA Volume Index 34 cc/m2 [ 16 - 34 ] TR Peak PG 21 mmHg ACS MM 1.84 cm [ 1.50 - 2.60 ] RVSP 29.00 mmHg [ 10.00 - 36.00 ] Lateral E` 0.06 m/s [ 0.10 - 0.15 ] E` 0.06 m/s E/E` 11 2D/MM Value Range Doppler Value Range - FINDINGS: Interpretation Site: Exam was interpreted at [facility]. Left Ventricle: Mild concentric left ventricular hypertrophy. Left ventricle cavity is upper limits of normal in size. Mild global left ventricular systolic dysfunction. Impaired diastolic relaxation Grade I. Ejection fraction is measured at 46 %. Ejection Fraction is visually estimated to be 45-50 %. Global Longitudinal Strain is -16 %. GLS is borderline. These segments of the LV are hypokinetic: mid inferior segment, apical inferior segment and inferolateral segment. These segments of the LV are akinetic: basal inferior segment. Right Ventricle: Normal right ventricular systolic function. Moderate enlargement of right ventricle. Left Atrium: There is mild enlargement of left atrium. Right Atrium: The right atrium is normal in size. Atrial Septum: Normal atrial septum. Mitral Valve: Normal appearance of the mitral valve. Mild mitral valve regurgitation. There is no hemodynamically significant mitral stenosis by Doppler. Aortic Valve: No evidence of hemodynamically significant aortic stenosis by Doppler. Aortic cusps appear mildly sclerotic. Trileaflet aortic valve. Mild aortic valve regurgitation. Tricuspid Valve: Normal appearance of the tricuspid valve. Normal right ventricular systolic pressure. Estimated peak RVSP is 29 mmHg. Mild tricuspid regurgitation. Pulmonic Valve: Normal appearance of the pulmonic valve. No pulmonic stenosis. Trivial regurgitation in the pulmonic valve. Pericardium: Normal pericardium with no significant pericardial effusion. Aorta: Normal aortic root. IVC: Normal size and normal respiratory collapse consistent with normal right atrial pressure (<5 mmHg). CONCLUSIONS: Mild concentric left ventricular hypertrophy. Left ventricle cavity is upper limits of normal in size. Mild global left ventricular systolic dysfunction. Impaired diastolic relaxation Grade I. Ejection fraction is measured at 46 %. Ejection Fraction is visually estimated to be 45-50 %. Global Longitudinal Strain is -16 %. GLS is borderline. These segments of the LV are hypokinetic: mid inferior segment, apical inferior segment and inferolateral segment. These segments of the LV are akinetic: basal inferior segment. There is mild enlargement of left atrium. Mild mitral valve regurgitation. Aortic cusps appear mildly sclerotic. Mild aortic valve regurgitation. Mild tricuspid regurgitation. Normal sinus rhythm. Electronically Signed By: Gila Cerna MD 06/05/2024 4:17:58 PM CHEMICAL EQUIPMENT SALES ENGINEER Procedure Note Gila Cerna MD - 06/05/2024 [facility] [address] [facility] [address], [place] [address] [address] [facility] [address], [place] [address] P:[phone] P:[phone] Echocardiographic Report Patient Name: ALBERT ODONNELL : 1955 Study Date: 06/05/2024 11:00:41 AM Gender: M Tech: Location: [facility] Provider: GILA CERNA Height(Cm): 150 BSA: 1.83 Weight(Kg): 80.7 Heart Rate: 79 BP: 110 / 66 Quality: Good Order Provider: GILA CERNA PROCEDURES: Echocardiographic Report: Transthoracic echocardiogram with complete 2D, M-Mode, and color Dopplerexamination. With Strain Analysis. INDICATIONS: Diabetes, Hypertension, I25.10 Atherosclerotic heart disease of nativecoronary artery without angina pectoris, and I36.1 Nonrheumatic tricuspid (valve)insufficiency. MEASUREMENTS: 2D/MM Value Range Doppler ValueRange EF Mod BP 46 % [ 52 - 72 ] BHAVIK Vmax 2.10cm2 [ 2.00 - 4.00 ] EF Teich MM 50 % [ 52 - 72 ] AV Mean PG 5mmHg Estimated EF 45-50 % AV Peak Quentin 1.53m/s [ 1.00 - 1.70 ] LVIDd 2D 4.99 cm [ 4.20 - 5.80 ] AV Peak PG 9mmHg LVIDd MM 5.73 cm [ 4.20 - 5.80 ] AV VTI 31.29cm LVIDs 2D 3.62 cm [ 2.50 - 4.00 ] LVOT Diam 1.98 cm[ 1.70 - 2.10 ] LVIDs MM 4.26 cm [ 2.50 - 4.00 ] LVOT Peak Quentin 1.04m/s [ 0.70 - 1.10 ] LVPWd 2D 1.07 cm [ 0.60 - 1.00 ] LVOT VTI 23.23cm LVPWd MM 0.67 cm [ 0.60 - 1.00 ] MV E Peak Quentin 0.70m/s [ 0.60 - 1.30 ] IVSd 2D 1.04 cm [ 0.60 - 1.00 ] MV A Peak Quentin 1.08m/s [ 1.00 - 1.20 ] IVSd MM 0.89 cm [ 0.60 - 1.00 ] MV Decel Time 197msec [ 104 - 258 ] LA Dimension MM 4.11 cm [ 3.00 - 4.00 ] PV Peak Quentin 1.33m/s [ 0.40 - 0.80 ] AoR Diam MM 3.68 cm [ 3.10 - 3.70 ] TR Peak Quentin 2.31m/s [ 1.00 - 2.80 ] LA Volume Index 34 cc/m2 [ 16 - 34 ] TR Peak PG 21mmHg ACS MM 1.84 cm [ 1.50 - 2.60 ] RVSP 29.00mmHg [ 10.00 - 36.00 ] Lateral E` 0.06 m/s [ 0.10 - 0.15 ] E` 0.06 m/s E/E` 11 2D/MM Value Range Doppler ValueRange - FINDINGS: Interpretation Site: Exam was interpreted at [facility] [place]. Left Ventricle: Mild concentric left ventricular hypertrophy. Left ventricle cavity isupper limits of normal in size. Mild global left ventricular systolic dysfunction.Impaired diastolic relaxation Grade I. Ejection fraction is measured at 46 %. EjectionFraction is visually estimated to be 45-50 %. Global Longitudinal Strain is -16 %. GLS isborderline. These segments of the LV are hypokinetic: mid inferior segment, apical inferiorsegment and inferolateral segment. These segments of the LV are akinetic: basalinferior segment. Right Ventricle: Normal right ventricular systolic function. Moderate enlargement of rightventricle. Left Atrium: There is mild enlargement of left atrium. Right Atrium: The right atrium is normal in size. Atrial Septum: Normal atrial septum. Mitral Valve: Normal appearance of the mitral valve. Mild mitral valve regurgitation.There is no hemodynamically significant mitral stenosis by Doppler. Aortic Valve: No evidence of hemodynamically significant aortic stenosis by Doppler.Aortic cusps appear mildly sclerotic. Trileaflet aortic valve. Mild aortic valveregurgitation. Tricuspid Valve: Normal appearance of the tricuspid valve. Normal right ventricularsystolic pressure. Estimated peak RVSP is 29 mmHg. Mild tricuspid regurgitation. Pulmonic Valve: Normal appearance of the pulmonic valve. No pulmonic stenosis. Trivialregurgitation in the pulmonic valve. Pericardium: Normal pericardium with no significant pericardial effusion. Aorta: Normal aortic root. IVC: Normal size and normal respiratory collapse consistent with normal rightatrial pressure (<5 mmHg). CONCLUSIONS: Mild concentric left ventricular hypertrophy. Left ventricle cavity isupper limits of normal in size. Mild global left ventricular systolic dysfunction.Impaired diastolic relaxation Grade I. Ejection fraction is measured at 46 %. EjectionFraction is visually estimated to be 45-50 %. Global Longitudinal Strain is -16 %. GLS isborderline. These segments of the LV are hypokinetic: mid inferior segment, apical inferiorsegment and inferolateral segment. These segments of the LV are akinetic: basalinferior segment. There is mild enlargement of left atrium. Mild mitral valve regurgitation. Aortic cusps appear mildly sclerotic. Mild aortic valve regurgitation. Mild tricuspid regurgitation. Normal sinus rhythm. Electronically Signed By: Gila Cerna MD 06/05/2024 4:17:58 PM CHEMICAL EQUIPMENT SALES ENGINEER Result [facility] Gila Cerna MD CV ECHO PROCEDURES Final Result * SCAN - RADIOLOGY/IMAGING (05/30/2024) Anatomical Region Laterality Modality Other Result [facility] Gila Cerna MD Final Res ult * Electrocardiogram Report (05/16/2024 3:43 PM CHEMICAL EQUIPMENT SALES ENGINEER) Result [facility] Gila Cerna MD ECG ORDERABLES Final Res ult * MCT Mobile Cardiac Telemetry Event Monitor (05/16/2024 2:32 PM CHEMICAL EQUIPMENT SALES ENGINEER) Anatomical Region Laterality Modality Electrocardiogra phy Narrative 06/05/2024 3:51 PM CHEMICAL EQUIPMENT SALES ENGINEER AMBULATORY [facility] REPORT Patient Name: Albert Odonnell Date of : 1955 Requesting Physician: Dr. Cerna Date of interpretation: 06/05/24 Type of monitor : 7 day event monitor Date of the study/Enrollment period: 05/16/2024-05/22/2024 Indication: Ventricular premature depolarization Quality of the study: Adequate Interpretation: Available rhythm strips show predominant underlying rhythm as sinus rhythm/sinus tachycardia, average heart rate 86 beats per minute (range 64-152 bpm). QRS is wide from known RBBB. Ventricular ectopy was seen in the form of isolated PVCs with a burden of 16% for the duration of the study. No sustained ventricular arrhythmias. Rare supraventricular ectopy. No other significant arrhythmias. No symptoms reported. Conclusions: Predominant underlying rhythm is sinus rhythm, average heart rate 86 beats per minute. QRS wide from known RBBB. Ventricular ectopy was seen, predominantly in the form of isolated PVCs with a burden of 16% for the duration of the study. No sustained ventricular arrhythmias. Rare supraventricular ectopy. No other significant arrhythmias. No symptoms reported. Voice recognition software was used to complete this document, therefore, disability benefits specialist variances may occur. Ovidio Pinzon MD, [facility] 06/05/24 Result [facility] Gila Cerna MD CV CARDIAC SERVICES [facility] Final Result * Lipid panel (10/12/2023 4:15 PM CDT) [...] Insurance [employer]IC[employer] PPO Care Teams Informatics Developer Relationship Specialty Start Date End Date Sarath Leger MD [address] [place] [address] PCP - General Internal Medicine 12/29/23
--- OUTSIDE RECORDS SUMMARY | 2024-07-02 00:21 | XMS_ITS | Continuity of Care Document ---
Author Name [facility] Organization [facility] Care Team Providers Care Asbestos Abatement Worker Name Role Phone [facility] Unavailable Unavailable Plan of Care List of future care activities from [facility] facilities. Additional future care activities may be listed in the Assessment and Plan section. Date/Time Care Activity Care Activity Detail Facili ty 07/17/2024 AMBULATORY - MEDICINE AMBULATORY - MEDICI [facility]
--- OUTSIDE RECORDS SUMMARY | 2024-07-02 00:21 | XMS_ITS | Data Portability ---
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 Name Role Phone INGRID LEGER Primary Care Provider Assessment Encounter Date Assessment Date Assessment LastModified by Organization Details LastModified Time 09/11/2023 09/11/2023 He brought his records from [place] some of them and they would put [...] old records follow-up with me 4 months [email or web address] Not available 09/23/2023 16:36:15 12/28/2023 12/28/2023 healthy high tian d lifestyle care instructions dermatology referral psychiatric referral follow up with me in 4 months blood work has been reviewed [facility] like for some ongoing evaluations for possibly some toxic exposures [email or web address] Not available 12/28/2023 23:04:08 04/15/2024 04/15/2024 mild elevation o f liver enzymes we will obtain blood work for that also some inflammatory markers for his joint pain keep his regular visit more recommendations pending results of testing Not available 05/17/2024 22:00:22 05/23/2024 05/23/2024 refill medicatio ns he will see me in recommended Prevnar 20 we do not have any in the clinic today Not available 05/23/2024 23:18:19 Plan of Treatment Reminders Order Date Submit Date Provider Last Modified By Organization Details Last Modified Time Details Appointments ANY 15 2024 10:00A Tisha Leger MD Not available Not available Not available Lab CK (creatine kinase), total, serum 2023 [email or web address] [facility] (L&D), [address], [place], [address], 04/19/2024 11:15:25 vitamin D, 25-hydrox y, total, serum [address] (L&D), [address], [place], [address], 04/15/2024 14:55:00 cryoglobu hilton, quantitat joanna, serum [address] (L&D), [address], [place], [address], 04/15/2024 14:55:00 hepatitis panel (A+B+C), acute, serum [address] (L&D), [address], [place], [address], 04/15/2024 14:55:00 CHETAN (antinucl ear antibodie s) screen, serum [address] (L&D), [address], [place], [address], 04/15/2024 14:55:00 copper, serum or plasma [address] (L&D), [address], [place], [address], 04/15/2024 14:55:00 cerulopla smin, serum [address] (L&D), [address], [place], [address], 04/15/2024 14:55:00 alpha-1-a ntitrypsi n (aat), QN, serum [address] (L&D), [address], [place], [address], 04/15/2024 14:55:00 iron + TIBC + ferritin, serum 2023 [facility] (L&D), [address], [place], [address], 04/19/2024 11:14:51 ESR (erythroc yte sedimenta tion rate), blood 2023 [facility] (L&D), [address], [place], [address], 04/19/2024 11:13:29 smooth muscle Ab, serum [address] (L&D), [address], [place], [address], 04/15/2024 14:55:00 mitochond rial Ab, serum [address] (L&D), [address], [place], [address], 04/15/2024 14:55:00 connectiv e tissue autoimmun e Ab panel, serum [address] (L&D), [place], [address], 04/15/2024 14:55:00 rf (rheumato id factor) + anti-ccp abs, serum 2023 024 [email or web address] [facility] (L&D), [address], [place], [address], 04/15/2024 14:55:00 PSA, total, serum or plasma 2023 024 [facility], [address], [address], [place], [address], 12/19/2023 11:38:57 HbA1c (hemoglob in A1c), blood 2023 024 JORGE [facility], [address] [facility] [address], [address], [place], [address], 12/19/2023 11:38:58 albumin/c reatinine , mass ratio, urine 2023 024 [facility], [address] [facility] [address], [address], [place], [address], 12/19/2023 11:38:57 CBC w/ auto diff 2023 024 [facility], [address] [facility] [address], [address], [place], [address], 12/19/2023 11:38:58 lipid panel, serum 2023 024 JORGE [facility], [address] [facility] [address], [address], [place], [address], 12/19/2023 11:38:58 CMP, serum or plasma 2023 024 JORGE [facility], [address] [address], [address], [place], [address], 12/19/2023 11:38:58 TSH, ultra-sen sitive, serum 2023 024 JORGE [facility], [address] [place] [address], [address], [place], [address], 12/19/2023 11:38:57 unlisted lab - T4, free 2023 024 [email or web address] [facility], [address] [place] [address], [address], [place], [address], 12/19/2023 11:40:07 T3, free, serum or plasma 2023 024 JORGE [facility], [address] [place] [address], [address], [place], [address], 12/19/2023 11:38:57 Referral psychiatr ist referral 2023 024 [email or web address] Fontanez (), [address] [place] [address], [address], 06/28/2024 16:02:57 cardiolog ist referral 2023 024 [facility], [address] [place] [address] [address], [address], 05/16/2024 17:57:57 dermatolo gist referral 2023 024 [facility], [address] [place], [address], 06/20/2024 17:25:36 podiatris t referral 2023 024 JORGE Coronado DPM, [address] [facility] [address], [place], [address], 12/21/2023 16:51:03 Procedures None recorded. Surgeries None recorded. Imaging US, liver 2023 024 [email or web address] [facility] (L&D), [address], [place], [address], 06/07/2024 09:11:39 Medication Orders sildenafi l 50 mg tablet 2024 025 [place] [address] [id number], [address] [facility] [place], [id number], 05/23/2024 14:40:35 Mounjaro 2.5 mg/0.5 mL subcutane ous pen injector 2024 025 [email or web address] [facility][id number], [address] [facility] [place], [id number], 05/23/2024 14:40:35 metformin 1,000 mg tablet 2024 025 [email or web address] [facility] #[id number], [address] [facility] [place], [id number], 05/23/2024 14:40:35 lisinopri l 10 mg tablet 2024 025 [facility] #[id number], [address] [facility] [place], [id number], 05/23/2024 14:40:35 Patient TargetsNo targets recorded. Patient Instructions Encounter Date Encounter Id Patient Instructions Last Modified By Organization Details Last Modified Time 09/11/2023 [id number] diabetic eye exam* JORGE Not available 12/19/2023 11:33:05 12/28/2023 [id number] A healthy lifestyle: care instructions [email or web address] Not available 12/28/2023 17:50:47 04/15/2024 [id number] A healthy lifestyle: care instructions Not available 04/15/2024 14:55:00 05/23/2024 [id number] A healthy lifestyle: care instructions [email or web address] Not available 05/23/2024 14:40:35 Reason for Referral Babysitter Referral for Type 2 diabetes mellitus Referring Physician: Ingrid Leger, Internal Medicine, Encounter Date: 09/11/2023 Psychiatrist Referral for Po sttraumatic stress disorder Referring Physician: Ingrid Leger, Internal Medicine, Encounter Date: 12/28/2023 Web Sizer Referral for S kin lesion Referring Physician: Ingrid Leger, Internal Medicine, Encounter Date: 12/28/2023 Inspector Golf Ball Referral for Co ronary atherosclerosis Referring Physician: Ingrid Leger, Internal Medicine, Encounter Date: 12/28/2023 Results Created Date Observation Date Name Description Value Unit Range Abnormal Flag Note LastModifiedBy Organization Detail LastModifiedTime 12/19/1912/19/2023 T4, free, serum A1C 6.4 Not Available [facility] [address], [place], [address], 12/19/2023 11:38:58 12/19/1912/19/2023 HbA1c (hemo globi n A1c), blood A1C 6.4 Not Available [facility] [address], [place], [address], 12/19/2023 11:38:58 12/19/1912/19/2023 CBC w/ auto diff A1C 6.4 Not Available [facility] [address], [place], [address], 12/19/2023 11:38:58 12/19/1912/19/2023 lipid panel , serum A1C 6.4 Not Available [facility] [address], [place], [address], 12/19/2023 11:38:58 12/19/1912/19/2023 CMP, serum or plasm a A1C 6.4 Not Available [facility] [address], [place], [address], 12/19/2023 11:38:58 12/19/19 24 12/19/2023 TSH, ultra -sens itive , serum A1C 6.4 Not Available [facility] [address] [facility] [address], [place], [address], 12/19/2023 11:38:57 12/19/19 24 12/19/2023 T3, free, serum or plasm a A1C 6.4 Not Available [facility] [address] [facility] [address], [place], [address], 12/19/2023 11:38:57 12/19/19 24 12/19/2023 PSA, total , serum or plasm a A1C 6.4 Not Available [facility] [address] [facility] [address], [place], [address], 12/19/2023 11:38:57 12/19/19 24 12/19/2023 album in/cr eatin ine, mass ratio , urine A1C 6.4 Not Available [facility] [address] [facility] [address], [place], [address], 12/19/2023 11:36:51 05/31/19 25 04/25/2024 US, liver No observ ation record ed. [facility] [address], [place], [address], 06/17/2024 17:22:10 Result Notes None recorded. Problems Name Problem SNOMED Code Status Onset Date Resolution Date Notes Provider Name and Address Organization Details Recorded Time Type 2 diabetes mellitus 53140383 Active 2023 KAREN Farr, [place] - [facility] 4 17:04:56 Skin lesion 26009293 Active 2023 KAREN Farr, [place] - [facility] 4 17:26:30 Posttraumatic stress disorder 38193293 Active 2023 KAREN Farr, [place] - [facility] 4 17:26:30 Overweight 254857061 Active 2023 Mike Vyas MA null, [facility] 4 17:26:31 Liver enzymes level above reference range 298969285 Active 2023 Mike Vyas MA null, [place] - [facility] 4 11:33:38 Problem Notes None recorded. Procedures Surgical History Date Name Laterality Status Provider Name and Address Organization Details Recorded Time tonsillectomy completed Nicko Esposito MA [facility] 12/28/2023 15:56:34 Imaging Results Imaging Date Name Status LastModified by Organiz ation Details LastModified Time 04/25/2024 US, liver completed [facility] [address] [facility] , [place], [address], 06/17/2024 17:22:10 Procedure Notes None recorded. Medical Equipment None [...] changed to 50mg per pts request Dr Leger ok Not Available Not Available Not Available aspirin [...] e 50 mcg/actua tion nasal spray,rc pension [place] 2 sprays every day by intranas al [...] Avai lable Vitals Date Recorded Body height Body mass index (BMI) Body weight Heart rate Oxygen saturation Oxygen saturation in Arterial blood by Pulse oximetry Systolic blood pressure Diastolic blood pressure Provider Name and Address Organization Details Last Updated DateTime 4 175.26 cm 29.4 kg/m2 21127.1 6 g 90 /min 93 % 93 % 140 mm[Hg] 82 mm[Hg] Concha Avila [place] - [facility] 4 15:49:22 Date Recorded Body height Body mass index (BMI) Body weight Heart rate Oxygen saturation Oxygen saturation in Arterial blood by Pulse oximetry Systolic blood pressure Diastolic blood pressure Provider Name and Address Organization Details Last Updated DateTime 4 175.26 cm 29.1 kg/m2 68338.7 g 84 /min 95 % 95 % 124 mm[Hg] 74 mm[Hg] Nicko Esposito MA [place] - [facility] 4 16:05:11 Date Recorded Body height Body mass index (BMI) Body weight Heart rate Oxygen saturation Oxygen saturation in Arterial blood by Pulse oximetry Systolic blood pressure Diastolic blood pressure Provider Name and Address Organization Details Last Updated DateTime 4 175.26 cm 27.8 kg/m2 72516.0 8 g 81 /min 97 % 97 % 120 mm[Hg] 84 mm[Hg] Mis AlcazarKAREN [facility] 4 10:40:20 Date Recorded Body height Body mass index (BMI) Body weight Heart rate Oxygen saturation Oxygen saturation in Arterial blood by Pulse oximetry Systolic blood pressure Diastolic blood pressure Provider Name and Address Organization Details Last Updated DateTime 5 175.26 cm 26.5 kg/m2 25472.8 3 g 84 /min 97 % 97 % 120 mm[Hg] 68 mm[Hg] Delicia Kinsey MA [facility] 5 12:02:00 Social History Question Answer Notes LastModified by Organizat ion Details LastModified Time Tobacco Smoking Status Former Smoker stopped 15years ago. Mike Vyas MA [facility] 09/11/2023 17:06:03 Do You Have An Advance [...] Anxious, Or Unable To Sleep At Night)? [id number] Information not available 09/11/2023 Do You Use [...] Response Coronary Artery Disease N Other Y Atrial Fibrillation N High Blood Pressure Y Thyroid Problems N Kidney or Bladder Problems N Depression N COPD Y Blood Clots N GI Problems Y Have you had a mammogram in the last yea r? N Skin Problems N Anemia N Heart Attack ([place]) Y Diabetes Y Anxiety Disorder Y Muscle, Joint, or Bone Problems N Seizures/Epilepsy N Have you had a colonoscopy in the last 1 0 years? N Acid Reflux (GERD) N Cancer Y Stroke N Allergies N Asthma N Have you had a PSA blood test in the las t year? N High Cholesterol Y Hepatitis N Liver Disease Y Headaches N Osteoporosis N Heart Failure N Immunizations Vaccine Type Date Status Note Provider Nam e and Address Organization Details Recorded Time influenza, unspecified formulation 2024 completed KAREN [place]dal[place] - [facility] 05/23/2024 11:59:20 Past Encounters Encounter ID Performer Location Encounter Start Date Encounter Closed Date Diagnosis/Indication Diagnosis SNOMED-CT Code Diagnosis ICD10 Code Diagnosis Note [id number] Ingrid Leger MD [facility] [place] [address] [place] [address] 09/11/2023 14:31:05 09/11/2023 17:04:25 Type 2 diabetes mellitus 53036951 E11.9 Essential hypertension 73136798 I10 Screening for malignant neoplasm of prostate 078223718 Z12.5 Obstructiv e sleep apnea syndrome 04889841 G47.33 Hyperlipidemia 00836290 E78.5 Steatosis of liver 27735 1007 K76.0 [id number] Ingrid Leger MD [facility] [place] [address] [place] [address] 12/28/2023 15:02:53 12/28/2023 16:43:17 Overweight 253885114 E66.3 Skin lesion 70500768 L98 .9 Posttrauma tic stress disorder 19128560 F43.10 Coronary atherosclerosis 543747702 I25.10 [id number] Ingrid Leger MD [facility] [place] [address] [place] [address] 04/15/2024 10:21:45 04/15/2024 11:37:56 Body mass index 25-29 - overweight 080130354 Z68.27 Overweight 582749008 E66 .3 Liver enzy mes level above reference range 916170169 R74.8 Multiple joint pain 3567 8005 M25.50 [id number] Ingrid Leger MD [facility] [place] [address] [place] [address] 05/23/2024 11:44:51 05/23/2024 12:49:40 Body mass index 25-29 - overweight 562238100 Z68.26 Overweight 229938304 E66 .3 Type 2 goyo betes mellitus 37285243 E11.9 Erectile dysfunction 860 192274 F52.21 Essential hypertension 94884102 I10 Health Concerns Section Related Observation LastModified by Organization Detai ls LastModified Time None Recorded Concern Status LastModified by Organization Details LastModified Time None Recorded Advance Directives Directive N: Payers Encounter Date Sequence Insurance Name Policy Number Policy Wood Covered Member ID Wood Member ID Guarantor Name 12/28/2023 1 [employer] (MEDICARE REPLACEMENT/ ADVANTAGE - PPO) Albert Tiwari [id number] Albert Tiwari 04/15/2024 1 [employer] (MEDICARE REPLACEMENT/ ADVANTAGE - PPO) Albert Tiwari [id number] Albert Dumontleson 05/23/2024 1 [employer] (MEDICARE REPLACEMENT/ ADVANTAGE - PPO) Albert Dumontleson [id number] Albert Dumontleson Notes Date Note Type Note Provider Name and Address Organization Details Recorded Time 09/11/2023 text/html [id number] k ids going to harm no support for should but with a history of type 2 diabetes sleep apnea with central alveolar hypoventilation syndrome COPD erectile dysfunction hyperlipidemia history of GI bleed in the past hypertension hepatic steatosis narcolepsy diabetic peripheral neuropathy diverticulosis and skin cancer who has moved from [place] and he comes in to establish care also treated for depression stress anxiety PTAs ST full cardiac workup in [place] from where he has moved in the past 6 months or so that was negative for ischemiaCurrently non-smoking 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, [place], [address], [facility] 09/23/2023 16:38:30 12/28/2023 text/html he is working wi th the [place] with regards to some issues diagnosed with posttraumatic stress wants to get a mental health professional involve no HI or SI. CAD denies chest pain diabetes A1c last couple of weeks with 6.4 he could stand to lose a little bit of weight and has gotten multiple skin lesions Ingrid Leger MD Attn: Accounting,[address] [facility], [place], [address], [facility] - SI 12/28/2023 23:04:24 04/15/2024 text/html he has had some stiffness multiple joint pain no fever no chills we stopped his cholesterol medicine with the equivocal results Medrol Dosepak has helped Ingrid Leger MD Attn: Accounting,[address] [facility], [place], [address], [facility] - [facility] 05/17/2024 22:01:18 05/23/2024 text/html his arthritic complaints are doing better. He needs refill his medicines for his diabetes erectile dysfunction and for his hypertension also interval history saw Cardiology Ingrid Leger MD Attn: Accounting,[address] [facility], [place], [address], [facility] 05/23/2024 23:18:35
--- OUTSIDE RECORDS SUMMARY | 2024-07-02 00:21 | XMS_ITS | Referral Summary ---
Author Organization [facility] [address] Address [address] [place] [address] Care Team Providers Care Project Planner Name Role Phone Sarath Leger MD Primary Care Provider Encounters Date Type Department Care Team Description 06/07/2024 Telephone [facility] Cardiology [address] [facility] [address] [place] [address] Gila Cerna MD 06/05/2024 11:15 AM SPEARER Ancillary Procedure [facility] Cardiology [address] [facility] [address] [place] [address] Atherosclerosis of [place] coronary artery of [place] heart without angina pectoris; Hypertension associated with diabetes (HCC); Nonrheumatic tricuspid valve regurgitation 05/30/2024 Orders Only [facility] [place] Health Information Management [address] [place] [id number] Gila Cerna MD 05/17/2024 Orders Only [facility] Cardiology [address] [facility] [address] [place] [address] ProviderKady MD 05/16/2024 2:30 PM SPEARER Ancillary Procedure [facility] Cardiology [address] [facility] [address] [place] [address] PVC's (premature ventricular contractions); Palpitations 05/16/2024 1:15 PM SPEARER Office Visit [facility] Cardiology [address] [place] [address] Gila Cerna MD PVC's (premature ventricular contractions) (Primary Dx); Atherosclerosis of [place] coronary artery of [place] heart without angina pectoris; Palpitations; ALIREZA (obstructive [...] mouth Active predniSONE (DELTASONE) 5 mg tablet 5 Active metoprolol tartrate (LOPRESSOR) 25 mg immediate [...] PVC's (premature ventricular contractions) 05/16 Atherosclerosis of [place] co ronary artery of [place] heart without angina pectoris 05/16/2024 Social History Tobacco Use Types Packs/Day Years Used Date Smoking Tobacco: Former Cigarettes 1.5 10 S tarted: 1985 Passive Smoke Exposure: Past Tobacco Cessation:Counseling Given: Not Answered Sex and Gender Information Value Date Recorded Sex Assigned at Not on file Legal Sex Male 10:09 AM CDT Gender Identity Not on file Sexual Orientation Not on file Last Filed Vital Signs Vital Sign Reading Time Taken Comments Blood Pressure 110/66 05/16/2024 1:07 PM SPEARER Pulse 93 05/16/2024 1:07 PM SPEARER Temperature - - Respiratory Rate - - Oxygen Saturation 94% 05/16/2024 1:07 PM SPEARER Inhaled Oxygen Concentration - - Weight 80.7 kg (178 lb) 05/16/2024 1:07 PM SPEARER Height 175.3 cm (5' 9 ) 05/16/2024 1:07 PM SPEARER Body Mass Index 26.29 05/16/2024 1:07 PM SPEARER Plan of Treatment Not on file Procedures Procedure Name Priority Date/Time Associated Diagnosis Comments TRANSTHORACIC ECHO (TTE) COMPLETE W DOPPLER/CF WO CONTRAST Routine 06/05/2024 11:30 AM SPEARER Atherosclerosis of [place] coronary artery of [place] heart without angina pectoris Hypertension associated with diabetes (HCC) Nonrheumatic tricuspid valve regurgitation SCAN - RADIOLOGY/IMAGING 05/30/2024 ELECTROCARDIOGRAM REPORT Routine 025 3:43 PM SPEARER Atherosclerosis of [place] coronary artery of [place] heart without angina pectoris PVC's (premature ventricular contractions) Palpitations MCT - MOBILE CARDIAC TELEMETRY EVENT MONITOR Routine 05/16/2024 2:32 PM SPEARER PVC's (premature ventricular contractions) Palpitations LIPID PANEL Routine 10/12/2023 4:15 PM CDT from Last 3 Months or Most Recently Relevant to Health Maintenance Results * TRANSTHORACIC ECHO (TTE) COMPLETE W DOPPLER/CF WO CONTRAST (06/05/2024 11:30 AM SPEARER) LV EF 45-50 % CONS SCIMAGE Anatomical Region Laterality Modality Ultrasound 06/05/2024 11:0 0 AM SPEARER Narrative 06/05/2024 4:18 PM SPEARER [facility] Cardiology [address] [facility] [address], [place] [address] [address], [place] [address] P:[phone] P:[phone] Echocardiographic Report Patient Name: ALBERT ODONNELL : 1955 Study Date: 06/05/2024 11:00:41 AM Gender: M Tech: Location: [facility] Provider: GILA CERNA Height(Cm): 150 BSA: 1.83 Weight(Kg): 80.7 Heart Rate: 79 BP: 110 / 66 Quality: Good Order Provider: GILA CERNA PROCEDURES: Echocardiographic Report: Transthoracic echocardiogram with complete 2D, M-Mode, and color Doppler examination. With Strain Analysis. INDICATIONS: Diabetes, Hypertension, I25.10 Atherosclerotic heart disease of [place] coronary artery without angina pectoris, and I36.1 [...] FINDINGS: Interpretation Site: Exam was interpreted at [facility]. Left Ventricle: Mild concentric left ventricular hypertrophy. [...] By: Gila Cerna MD 06/05/2024 4:17:58 PM SPEARER Procedure Note Gila Cerna MD - 06/05/2024 [facility] Cardiology [address] [facility] [address], [place] [address] [facility] [facility] [id number], [place] [address] P:[phone] P:[phone] Echocardiographic Report Patient Name: ALBERT ODONNELL : 1955 Study Date: 06/05/2024 11:00:41 AM Gender: M Tech: Location: [facility] Provider: GILA CERNA Height(Cm): 150 BSA: [...] FINDINGS: Interpretation Site: Exam was interpreted at [facility]. Left Ventricle: Mild concentric left ventricular hypertrophy. [...] By: Gila Cerna MD 06/05/2024 4:17:58 PM SPEARER Gila Cerna MD CV ECHO PROCEDURES Final Result * SCAN - RADIOLOGY/IMAGING (05/30/2024) Anatomical Region Laterality Modality Other Gila Cerna MD Final Res ult * Electrocardiogram Report (05/16/2024 3:43 PM SPEARER) Gila Cerna MD ECG ORDERABLES Final Res ult * MCT Mobile Cardiac Telemetry Event Monitor (05/16/2024 2:32 PM SPEARER) Anatomical Region Laterality Modality Electrocardiogra phy Narrative 06/05/2024 3:51 PM SPEARER AMBULATORY SOFTWARE DESIGN ENGINEER REPORT Patient Name: Albert Odonnell Date of [...] was used to complete this document, therefore, lacquer maker variances may occur. Ovidio Pinzon MD, [facility] 06/05/24 Gila Cerna MD CV [facility] Final Result * Lipid panel (10/12/2023 4:15 PM CDT) SCRIBED Cholesterol, Total 167 <200 EXTERNAL LAB SCRIBED HDL 30 >40 EXTERNAL LAB SCRIBED LDL 85 <100 EXTERNAL LAB SCRIBED Triglycerides 261 <150 EXTERNAL LAB Blood Historical Provider LAB BLOOD ORDERABLES Edit ed Result - Final EXTERNAL LAB from Last 3 Months or Most Recently Relevant to Health Maintenance Insurance [employer] PPO Care Teams Project Planner Relationship Specialty Start Date End Date Sarath Leger MD [address] [place] [address] PCP - General Internal Medicine 12/29/23
--- OUTSIDE RECORDS SUMMARY | 2024-07-02 00:21 | XMS_ITS | Continuity of Care Document ---
Author Organization [facility] Address [address] [place] [address] Phone Care Team Providers Care Diaper Folder Name Role Phone Bharati Ledezma OD Unavailable [...] on Encounter [facility], [address], [place], [place], [id number] , tel: [phone] [facility]ha T2DM (chief complaint) Type 2 diabetes mellitus without complication, without long-term current use of insulinLong term (current) use of oral hypoglycemic drugsHigh myopia, both eyesRegular astigmatism of both eyesPresbyopia of both eyesCombined forms of age-related cataract of both eyes 4 Brisa Calabrese. [address], [place], [address], [place]. tel: [phone] [facility], [address], [place], [place], [id number] , tel: [phone] [facility] [place] DM CEE (chief complaint) Type 2 diabetes mellitus without complication, without long-term current use of insulinLong term (current) use of oral hypoglycemic drugsCombined forms of age-related cataract of both eyesHigh myopia, both eyesPresbyopia of both eyesPVD (posterior vitreous detachment), right eye Jul-3 0- 3 Cheli Janes. [address] [facility], [address], [address], . tel: [phone] [facility], [address], [place], [place], [id number] , tel: [phone] [facility] routine eye exam OU (chief complaint) Type 2 diabetes mellitus without complication, without long-term current use of insulinLong term (current) use of oral hypoglycemic drugsCombined forms of age-related cataract of both eyesHigh myopia, both eyesPresbyopia of both eyes Jul-0 2 Cheli Janes. [address], [address], . tel: [phone] [facility], [address], [place], [place], [id number] , [place] tel: [phone] [facility] [place] DM ll (chief complaint) Type 2 diabetes mellitus without complication, without long-term current use of insulinLong term (current) use of oral hypoglycemic drugsHigh myopia, both eyesRegular astigmatism of both eyesPresbyopia of both eyesCombined forms of age-related cataract of both eyes 1 Cheli Janes. [address] [facility], [address], [address], . tel: [phone] [facility], [address], [place], [place], [id number] , [place] tel: [phone] [facility] [place] DM (chief complaint) Type 2 diabetes mellitus without complication, without long-term current use of insulinLong term (current) use of oral hypoglycemic drugsHigh myopia, both eyesRegular astigmatism of both eyesPresbyopia of both eyesSenile nuclear sclerosis, bilateral 0 Cheli Janes. [address], [address], . tel: [phone] [facility], [address], [place], [place], [id number] , [place] tel: [phone] [facility] [place] annual exam (chief complaint) Type 2 diabetes mellitus without complication, without long-term current use of insulinHigh myopia, both eyesPresbyopia of both eyesPVD (posterior vitreous detachment), both eyes Oct-2 9-201 8 Cheli Janes. [address], [facility], . tel: [phone] [facility], [address], [place], [place], [id number] , [place] tel: [phone] [facility] [place] Dm type 2 (chief complaint) High myopia, both eyesRegular astigmatism of both eyesPresbyopiaType 2 diabetes mellitus without complication, without long-term current use of insulinPVD (posterior vitreous detachment), both eyes Oct-2 7-201 7 Cheli Janes. [address], [address], . tel: [phone] [facility], [address], [place], [place], [id number] , [place] tel: [phone] [facility] [place] Decreased vision (chief complaint) High myopia, both eyesAstigmatism of both eyesPresbyopia OUDermatochalasis of right upper eyelidDermatochalasis of left upper eyelidSenile nuclear sclerosis, bilateralVitreous syneresis of both eyesType 2 diabetes mellitus without complication, without long-term current use of insulin Oct-0 4-201 6 Cheli Janes. [address], [address], . tel: [phone] [facility], [address], [place], [place], [id number] , [place] tel: [phone] [facility] [place] Dry eyes (chief complaint) High myopia, both eyesAstigmatism of both eyesPresbyopia OUDM w/o complication type IIPVD (posterior vitreous detachment), both eyes Oct-0 2-201 5 Cheli Janes. [address], [facility], . tel: [phone] [facility], [address], [place], [place], [id number] , tel: [phone] [facility] [place] Decreased vision (chief complaint) DM Type 2, UncomplicatedNo diabetic retinopathy in both eyesMyopiaAstigmatism , unspecifiedPresbyopia 4 Cheli Janes. [address], [facility], . tel: [phone] [facility], [address], [place], [place], [id number] , [place] tel: [phone] [facility] [place] DM Type 2, UncomplicatedMyopiaAs tigmatism, unspecifiedPresbyopia Vitreous degeneration 3 Cheli Janes. [address], [facility], . tel: [phone] [facility], [address], [place], [place], [id number] , [place] tel: [phone] [facility] [place] DM Type 2, UncomplicatedRegular astigmatismPresbyopia Vitreous degeneration 2 Cheli Janes. [address], [facility], . tel: [phone] [facility], [address], [place], [place], [id number] , [place] tel: [phone] [facility] [place] No Information 1 Cheli Janes. [address], [facility], . tel: [phone] [facility], [address], [place], [place], [id number] , tel: [phone] [facility] [place] No Information 0 1 Cheli Janes. [address], [facility], . tel: [phone] Family History Family Member Type Diagnosis Age [...] Provider Payers Payer name Insurance type Covered republican ID Authoriza tion(s) [employer] Medicare PPO [id number] Social History Type Description Quantity Date Captured [...] glare with nighttime driving.BS: 131, taken this [id number]: 6.9- 7.1, taken about 5-6 months agoTakes [...] glare with nighttime driving.BS: 131, taken this [id number]: 6.9- 7.1, taken about 5-6 months agoTakes [...] Impression/Plan Impression/Plan Impression/Plan Impression/Plan Impression/Plan Impression/Plan - Return in 1 year w Janes Dunlap for Complete Exam / Contacts Related to Type 2 diabetes mellitus without complication, without long-term current use of insulin - 1. DM II- DM w. no [...] to DM w/o complication type II - Discussed diagnosi s in detail with [...] Uncomplicated - [facility] B[facility] for CEE Related to DM Type 2, Uncomplicated - Return 1 year with Janes Bower for Complete Exam / Contacts. Related to See impression: general plan General plan -Diabet es mellitus -Myopia -Astigmatism, [...] general plan - Return in 1 year Janes Tinsley for Complete Exam / Contacts. 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
--- OUTSIDE RECORDS SUMMARY | 2024-07-02 00:22 | XMS_ITS | Clinical Summary ---
Author Organization [facility] Address [address] [place] [address] Care Team Providers Care Counter Supply Worker Name Role Phone Ingrid Leger MD Primary Care Provider [phone] Encounters Date Type Department Care Team Description 04/25/2024 8:17 AM BLOCK BOLTER MULE OPERATOR - 04/25/2024 11:59 PM BLOCK BOLTER MULE OPERATOR Hospital Encounter [facility] [address] [place] [address] Ingrid Leger MD Discharge Disposition: Home or Self Care (Routine Discharge) 04/25/2024 Travel 04/18/2024 12:42 PM BLOCK BOLTER MULE OPERATOR - 04/18/2024 11:59 PM BLOCK BOLTER MULE OPERATOR Hospital Encounter [facility] [place] [address] [address] Ingrid Leger MD Discharge Disposition: Home or Self Care (Routine Discharge) 04/18/2024 Orders Only [facility] [address] [place] [address] [address] Ingrid Leger MD 04/18/2024 Travel 04/09/2024 10:50 AM BLOCK BOLTER MULE OPERATOR - 04/09/2024 11:59 PM BLOCK BOLTER MULE OPERATOR Hospital Encounter [facility] [address] [place] [address] [address] Ingrid Leger MD Discharge Disposition: Home or Self Care (Routine Discharge) 04/09/2024 Orders Only [facility] [address] [address] [address] Ingrid Leger MD 04/08/2024 12:15 PM BLOCK BOLTER MULE OPERATOR - 04/08/2024 11:59 PM BLOCK BOLTER MULE OPERATOR Hospital Encounter [facility] [place] [address] [address] Ingrid Leger MD Discharge Disposition: Home or Self Care (Routine Discharge) 04/08/2024 Orders Only [facility] [address] [place] [address] Ingrid Leger MD 04/08/2024 Travel from Last 3 Months Social History Tobacco Use Types Packs/Day Years Used Date Smoking Tobacco: Never Assessed Sex and Gender Information Value Date Recorded Sex Assigned at Not on file Legal Sex Male 12:42 PM CDT Gender Identity Not on file Sexual Orientation Straight 04/18/2024 9 :03 AM BLOCK BOLTER MULE OPERATOR Plan of Treatment Health Maintenance Due [...] US ABD LIMITED Routine 04/25/2024 9:11 AM BLOCK BOLTER MULE OPERATOR Elevated liver enzymes CYCLIC CITRULLINATED PEPTIDE (CCP)ANTIBODY(IGG) Routine 04/18/2024 1:12 PM BLOCK BOLTER MULE OPERATOR Abnormal levels of other serum enzymes RHEUMATOID FACTOR, QUANT Routine 04/18/2024 1:12 PM BLOCK BOLTER MULE OPERATOR Abnormal levels of other serum enzymes OCCUPATIONAL THERAPY PROFESSOR ANTIBODY Routine 04/18/2024 1:12 PM BLOCK BOLTER MULE OPERATOR Abnormal levels of other serum enzymes ANTI-MITOCHONDRIAL AB: Routine 04/18/2024 1:12 PM BLOCK BOLTER MULE OPERATOR Abnormal levels of other serum enzymes ANTI-SMOOTHMUSCLE AB: Routine 04/18/2024 1:12 PM BLOCK BOLTER MULE OPERATOR Abnormal levels of other serum enzymes SED RATE, ERYTHROCYTE (ESR) Routine 04/18/2024 1:12 PM BLOCK BOLTER MULE OPERATOR Abnormal levels of other serum enzymes FERRITIN Routine 04/18/2024 1:12 PM BLOCK BOLTER MULE OPERATOR Abnormal levels of other serum enzymes IRON SAT PANEL (IRON,IBC,%SAT) Routine 04/18/2024 1:12 PM BLOCK BOLTER MULE OPERATOR Abnormal levels of other serum enzymes [id number], TOTAL Routine 04/18/2024 1:12 PM BLOCK BOLTER MULE OPERATOR Abnormal levels of other serum enzymes CERULOPLASMIN Routine 04/18/2024 1:12 PM BLOCK BOLTER MULE OPERATOR Abnormal levels of other serum enzymes COPPER Routine 04/18/2024 1:12 PM BLOCK BOLTER MULE OPERATOR Abnormal levels of other serum enzymes ANTINUCLEAR ANTIBODY WI RFX Routine 04/18/2024 1:12 PM BLOCK BOLTER MULE OPERATOR Abnormal levels of other serum enzymes HEPATITIS PANEL,ACUTE Routine 04/18/2024 1:12 PM BLOCK BOLTER MULE OPERATOR Abnormal levels of other serum enzymes CRYOGLOBULIN Routine 04/18/2024 1:12 PM BLOCK BOLTER MULE OPERATOR Abnormal levels of other serum enzymes VITAMIN D, 25 OH Routine 04/18/2024 1:12 PM BLOCK BOLTER MULE OPERATOR Abnormal levels of other serum enzymes CK (CPK) Routine 04/18/2024 1:12 PM BLOCK BOLTER MULE OPERATOR Abnormal levels of other serum enzymes SED RATE, ERYTHROCYTE (ESR) Routine 04/09/2024 11:07 AM BLOCK BOLTER MULE OPERATOR Anesthesia of skin Vitamin D deficiency, unspecified VITAMIN D, 25 OH Routine 04/09/2024 11:0 7 AM BLOCK BOLTER MULE OPERATOR Anesthesia of skin Vitamin D deficiency, unspecified FOLIC ACID SERUM Routine 04/09/2024 11:0 7 AM BLOCK BOLTER MULE OPERATOR Anesthesia of skin Vitamin D deficiency, unspecified VITAMIN B-12 Routine 04/09/2024 11:07 AM BLOCK BOLTER MULE OPERATOR Anesthesia of skin Vitamin D deficiency, unspecified C-REACTIVE PROTEIN Routine 04/09/2024 11 :07 AM BLOCK BOLTER MULE OPERATOR Anesthesia of skin Vitamin D deficiency, unspecified LIPID PANEL Routine 04/08/2024 12:43 PM BLOCK BOLTER MULE OPERATOR Type 2 diabetes mellitus without complications (CMS/HCC HHS/HCC) Essential (primary) hypertension HEMOGLOBIN, GLYCOSYLATED Routine 04/08/2024 12:43 PM BLOCK BOLTER MULE OPERATOR Type 2 diabetes mellitus without complications (CMS/HCC HHS/HCC) Essential (primary) hypertension THYROXINE, FREE (FT4) Routine 04/08/2024 12:43 PM BLOCK BOLTER MULE OPERATOR Type 2 diabetes mellitus without complications (CMS/HCC HHS/HCC) Essential (primary) hypertension THYROID STIM HORMONE TSH Routine 04/08/2024 12:43 PM BLOCK BOLTER MULE OPERATOR Type 2 diabetes mellitus without complications (CMS/HCC HHS/HCC) Essential (primary) hypertension FREE T3 Routine 04/08/2024 12:43 PM BLOCK BOLTER MULE OPERATOR Type 2 diabetes mellitus without complications (CMS/HCC HHS/HCC) Essential (primary) hypertension COMPREHENSIVE METABOLIC PANEL Routine 04/08/2024 12:43 PM BLOCK BOLTER MULE OPERATOR Type 2 diabetes mellitus without complications (CMS/HCC HHS/HCC) Essential (primary) hypertension CBC W/DIFF AUTOMATED Routine 04/08/2024 12:43 PM BLOCK BOLTER MULE OPERATOR Type 2 diabetes mellitus without complications (CMS/HCC HHS/HCC) Essential (primary) hypertension from Last 3 Months Results * US ABD LIMITED (04/25/2024 9:11 AM BLOCK BOLTER MULE OPERATOR) Anatomical Region Laterality Modality Abdomen Ultrasound 04/25/2024 9:45 AM BLOCK BOLTER MULE OPERATOR Impressions 04/25/2024 9:47 AM BLOCK BOLTER MULE OPERATOR IMPRESSION: Hepatic steatosis. Otherwise unremarkable. Ordered By: INGRID LEGER Interpreted By: Alvino Esposito MD, 04/25/2024 9:45 AM Narrative 04/25/2024 9:47 AM BLOCK BOLTER MULE OPERATOR [address] [place] [address] Examination: Ultrasound of the liver. Exam time: [...] Procedure Note Alvino Esposito MD - 04/25/[address] [place] [address] Examination: Ultrasound of the liver. Exam time: [...] Ingrid Leger MD ULTRASOUND Final Result * OCCUPATIONAL THERAPY PROFESSOR ANTIBODY (04/18/2024 1:12 PM BLOCK BOLTER MULE OPERATOR) Pathologist [facility] OCCUPATIONAL THERAPY PROFESSOR (U1) AB S/P/B 1.1 0.0 - 4.9 U/mL 04/24/2024 12:55 PM BLOCK BOLTER MULE OPERATOR [facility] Comment: NEGATIVE: <5 U/mL EQUIVOCAL: 5 to 10 U/mL POSITIVE: >10 U/mL AUTOANTIBODIES TO OCCUPATIONAL THERAPY PROFESSOR ARE FOUND IN GREATER THAN 95% OF PATIENTS WITH MIXED CONNECTIVE TISSUE DISEASE (MCTD), BUT ARE ALSO SEEN IN SYSTEMIC LUPUS ERYTHEMATOUS (40%), RHEUMATOID ARTHRITIS (10%), SCLERODERMA SYNDROME (10%), AND RARELY IN DRUG INDUCED LUPUS AND SJOGREN'S SYNDROME. ABSENCE OF OCCUPATIONAL THERAPY PROFESSOR ANTIBODIES USUALLY RULES OUT MCTD. 04/18/2024 1:12 PM BLOCK BOLTER MULE OPERATOR Ingrid Leger MD LABORATORY Final Result [facility] [address] [place] [address], [id number] * ANTINUCLEAR ANTIBODY WI RFX (04/18/2024 1:12 PM BLOCK BOLTER MULE OPERATOR) Pathologist [facility] CHETAN 0.2 04/22/2024 1:44 PM BLOCK BOLTER MULE OPERATOR [facility] Comment: NEGATIVE: <0.7 RATIO CHETAN PROFILE AND TITER NOT PERFORMED THE CHETAN SCREEN TESTS FOR THE FOLLOWING ANTIBODIES BY EIA: SSA1 (RO), SSB1 (LA), LINDSEY, SCL70, JO1, CENTROMERE, OCCUPATIONAL THERAPY PROFESSOR HISTONE MUST BE ORDERED SEPARATELY DNA (DS) ANTIBODY 0.9 IU/ML 024 1:44 PM BLOCK BOLTER MULE OPERATOR [facility] Comment: NEGATIVE: <10 IU/mL EQUIVOCAL: 10 to 15 IU/mL POSITIVE: >15 IU/mL THIS QUANTITATIVE ASSAY IS CALIBRATED TO THE [employer]'S WO/80 STANDARD. THE LEVEL OF dsDNA AUTOANTIBODY GERERALLY CORRELATES WITH THE LEVEL OF DISEASE ACTIVITY IN SYSTEMIC LUPUS ERYTHMATOSUS 04/18/2024 1:12 PM BLOCK BOLTER MULE OPERATOR us Ingrid Leger MD LABORATORY Final Result Performing Organization Address City/[facility]/ZIP Co de Phone Number [facility] [address] [place] [address], [phone] * RHEUMATOID FACTOR, QUANT (04/18/2024 1:12 PM BLOCK BOLTER MULE OPERATOR) RHEUMATOID FACTOR <10 <15 IU/ML 04/19/2024 1:28 PM BLOCK BOLTER MULE OPERATOR [facility] 04/18/2024 1:12 PM BLOCK BOLTER MULE OPERATOR us Ingrid Leger MD LABORATORY Final Result Performing Organization Address [facility] Co de Phone Number [facility] [address] [place] [address], [place] [phone] [id number] * CYCLIC CITRULLINATED PEPTIDE (CCP)ANTIBODY(IGG) (04/18/2024 1:12 PM BLOCK BOLTER MULE OPERATOR) CITRULLINE PEPTIDE ANTIBODY <16 <20 Units 04/23/2024 8:54 PM BLOCK BOLTER MULE OPERATOR [facility] Comment: Negative: <20 Weak Positive: 20 - 39 Moderate Positive: 40 - 59 Strong Positive: >59 Test Performed by [employer], [employer] [facility] [place], [address] [place] [address] Janes Loving M.D., Ph.D., Director of Laboratories , [facility] [id number] 04/18/2024 1:12 PM BLOCK BOLTER MULE OPERATOR us Ingrid Leger MD LABORATORY Final Result Performing Organization Address [facility] Co de Phone Number [id number] , [place] [phone] * ANTI-SMOOTHMUSCLE AB: (04/18/2024 1:12 PM BLOCK BOLTER MULE OPERATOR) ACTIN (SMOOTH MUSCLE) AB <20 <20 U 04/21/2024 9:41 PM BLOCK BOLTER MULE OPERATOR [facility] Comment: Reference Range: <20 U: Negative >or=20 U: Positive Antibodies recognizing [...] with AIH type 1. Test Performed by [employer], [id number] [place] [address] Janes Loving M.D., Ph.D., Director of Laboratories , [facility] [id number] 04/18/2024 1:12 PM BLOCK BOLTER MULE OPERATOR us Ingrid Leger MD LABORATORY Final Result Performing Organization Address [facility] Co de Phone Number [place] [id number] [place], [place] , [place] [phone] * MITOCHONDRIAL AB WITH REFLEX TO TITER (04/18/2024 1:12 PM BLOCK BOLTER MULE OPERATOR) Pathologist [facility] ANTI-MITOCHONDRI AL AB Negative Negative 04/23/2024 9:40 PM BLOCK BOLTER MULE OPERATOR [facility]ST[facility] Comment: Test Performed by [employer], [address] [place], [place] Janes Loving M.D., Ph.D., Director of Laboratories , [place] [id number] 04/18/2024 1:12 PM BLOCK BOLTER MULE OPERATOR us Ingrid Leger MD LABORATORY Final Result Performing Organization Address City/[facility]/ZIP Co de Phone Number [employer] [place] [phone] [place], [place] , [place] [phone] * (ABNORMAL) IRON SATURATION PNL (FE/TIBC/SAT) (04/18/2024 1:12 PM BLOCK BOLTER MULE OPERATOR) IRON 60(L) 65 - 175 MCG/DL 04/18/2024 2:37 PM BLOCK BOLTER MULE OPERATOR [facility] IRON BINDING CAPACITY 301 250 - 450 MCG/DL 04/18/2024 2:37 PM BLOCK BOLTER MULE OPERATOR [facility] IRON SATURATION 20 % 2:37 PM BLOCK BOLTER MULE OPERATOR [facility] Comment:REFERENCE RANGE NOT ESTABLISHED 04/18/2024 1:12 PM BLOCK BOLTER MULE OPERATOR us Ingrid Leger MD LABORATORY Final Result Performing Organization Address [facility] de Phone Number [facility] [address] [place] [address], [place] [phone] * (ABNORMAL) SED RATE, ERYTHROCYTE (ESR) (04/18/2024 1:12 PM BLOCK BOLTER MULE OPERATOR) Only the most recent of2 resultswithin the time period is included. ESR 16(H) 0 - 15 MM/HR 04/18/2024 2:11 PM BLOCK BOLTER MULE OPERATOR [facility] 04/18/2024 1:12 PM BLOCK BOLTER MULE OPERATOR us Ingrid Leger MD LABORATORY Final Result Performing Organization Address City/[facility]/ZIP Co de Phone Number [facility] [address] [place] [address], [place] [phone] * HEPATITIS PANEL,ACUTE (04/18/2024 1:12 PM BLOCK BOLTER MULE OPERATOR) HEPATITIS B SURFACE AG NON-REACT PETRONA NON-REACT PETRONA 04/19/2024 5:30 PM BLOCK BOLTER MULE OPERATOR [facility] Comment:HBsAg NOT DETECTED. HEP B CORE IGM NON-REACT PETRONA NON-REACT PETRONA 04/19/2024 5:30 PM BLOCK BOLTER MULE OPERATOR [facility] Comment: IgM ANTI HBc NOT DETECTED. DOES NOT EXCLUDE THE POSSIBILITY OF EXPOSURE TO OR INFECTION WITH HBV. NO RETEST REQUIRED. HIGH DOSES OF BIOTIN MAY INTERFERE WITH THIS TEST RESULT. CORRELATION TO CLINICAL HISTORY AND PRESENTATION RECOMMENDED. HAV IGM NON-REACT PETRONA NON-REACT PETRONA 04/19/2024 5:30 PM BLOCK BOLTER MULE OPERATOR [facility] Comment: IgM ANTI HAV NOT DETECTED. DOES NOT EXCLUDE THE POSSIBILITY OF EXPOSURE TO OR INFECTION WITH HAV. LEVELS OF IgM ANTI HAV MAY BE BELOW THE CUTOFF IN EARLY INFECTION. HEPATITIS C AB NON-REACT PETRONA NON-REACT PETRONA 04/19/2024 5:30 PM BLOCK BOLTER MULE OPERATOR [facility] Comment: ANTIBODIES TO HCV NOT DETECTED. DOES NOT EXCLUDE THE POSSIBILITY OF EXPOSURE TO HCV. 04/18/2024 1:12 PM BLOCK BOLTER MULE OPERATOR us Ingrid Leger MD LABORATORY Final Result [facility] [address] [place] [address], [id number] * (ABNORMAL) VITAMIN D, 25 OH (04/18/2024 1:12 PM BLOCK BOLTER MULE OPERATOR) Only the most recent of2 resultswithin the time period is included. VITAMIN D 25 HYDROXY TOTAL S/P/B 82.5(H) 20.0 - 50.0 NG/ML 04/19/2024 1:16 PM BLOCK BOLTER MULE OPERATOR [facility] Comment: <10 ng/mL (Severe deficiency) 10 TO 19 ng/mL (Mild to Moderate deficiency) 20 TO 50 ng/mL (Optimum levels) 51 TO 80 ng/mL (Increased risk of hypercalciuria) >80 ng/mL (Toxicity possible) 04/18/2024 1:12 PM BLOCK BOLTER MULE OPERATOR us Ingrid Leger MD LABORATORY Final Result [facility] [address] [place] [address], [place] [phone] * FERRITIN (04/18/2024 1:12 PM BLOCK BOLTER MULE OPERATOR) FERRITIN 336.4 26 - 388 NG/ML 04/18/2024 1:59 PM BLOCK BOLTER MULE OPERATOR [facility] 04/18/2024 1:12 PM BLOCK BOLTER MULE OPERATOR us Ingrid Leger MD LABORATORY Final Result Performing Organization Address City/[facility]/ZIP Co de Phone Number [facility] [address] [place] [address], [place] [phone] * CRYOGLOBULIN (%CRYOCRIT) (04/18/2024 1:12 PM BLOCK BOLTER MULE OPERATOR) CRYOGLOBULIN QL S/P/B Negative Negative 04/24/2024 10:07 PM BLOCK BOLTER MULE OPERATOR [facility] Comment: The Cryocrit is primarily intended for following a patient with previously defined and quantitated cryoglobulins. The cryocrit may consist of cryoglobulins, fibrins, complement, or mixtures of these. Test Performed by [employer], [employer] [facility], [address] [place] [address] Janes Loving M.D., Ph.D., Director of Laboratories , [place] [id number] % CRYOCRIT END OF REPORT 04/24/2024 10:07 PM BLOCK BOLTER MULE OPERATOR [employer] [facility] [place] 04/18/2024 1:12 PM BLOCK BOLTER MULE OPERATOR us Ingrid Leger MD LABORATORY Final Result Performing Organization Address City/[facility]/ZIP Co de Phone Number [facility] [address] [place], [place] , [place] [phone] * COPPER (04/18/2024 1:12 PM BLOCK BOLTER MULE OPERATOR) COPPER S/P/B 112 70 - 175 mcg/dL 04/21/2024 11:48 AM BLOCK BOLTER MULE OPERATOR [facility] Comment: This test was developed and its analytical performance characteristics have been determined by [employer] [place], [place]. It has not been cleared or approved by the U.S. Food and Drug Administration. This assay has been validated pursuant to the CLIA regulations and is used for clinical purposes. Test Performed by [facility], [employer] [facility], [address] [place] [address] Janes Loving M.D., Ph.D., Director of Laboratories , CLIA [id number] 04/18/2024 1:12 PM BLOCK BOLTER MULE OPERATOR us Ingrid Leger MD LABORATORY Final Result [employer] [address] , [place] [phone] * (ABNORMAL) CK (CPK) (04/18/2024 1:12 PM BLOCK BOLTER MULE OPERATOR) Pathologist [facility] CPK 35(L) 39 - 308 U/L 04/18/2024 1:59 PM BLOCK BOLTER MULE OPERATOR [facility] 04/18/2024 1:12 PM BLOCK BOLTER MULE OPERATOR us Ingrid Leger MD LABORATORY Final Result [facility] [address] [place] [address], [place] [phone] * CERULOPLASMIN (04/18/2024 1:12 PM BLOCK BOLTER MULE OPERATOR) CERULOPLASMIN 27 14 - 30 mg/dL 04/23/2024 7:42 PM BLOCK BOLTER MULE OPERATOR [facility] Comment: Test Performed by [employer] [facility], [employer], [address] [place], [place] Janes Loving M.D., Ph.D., Director of Laboratories , CLIA [id number] 04/18/2024 1:12 PM BLOCK BOLTER MULE OPERATOR us Ingrid Leger MD LABORATORY Final Result Performing Organization Address City/[facility]/ZIP Co de Phone Number [employer] [address] [place], [place] , [place] [phone] * [id number] TOTAL (04/18/2024 1:12 PM BLOCK BOLTER MULE OPERATOR) [id number] QUANT 141 83 - 199 mg/dL 04/23/2024 7:42 PM BLOCK BOLTER MULE OPERATOR [facility] Comment: Test Performed by [employer], [employer], [address] [place], [place] Janes Loving M.D., Ph.D., Director of Laboratories , CLIA [id number] 04/18/2024 1:12 PM BLOCK BOLTER MULE OPERATOR us Ingrid Leger MD LABORATORY Final Result Performing Organization Address City/[facility]/ZIP Co de Phone Number [employer] [address] [place], [place] , [place] [phone] * (ABNORMAL) VITAMIN B-12 (04/09/2024 11:07 AM BLOCK BOLTER MULE OPERATOR) VITAMIN B12 S/P/B 2,726(H) 193 - 986 PG/ML 04/10/2024 1:56 PM BLOCK BOLTER MULE OPERATOR [facility] 04/09/2024 11:0 7 AM BLOCK BOLTER MULE OPERATOR us Ingrid Leger MD LABORATORY Final Result [facility] [address] [place] [address], [phone] * (ABNORMAL) C-REACTIVE PROTEIN (04/09/2024 11:07 AM BLOCK BOLTER MULE OPERATOR) C-REACTIVE PROTEIN 4.36(H) <0.30 mg/dL 04/09/2024 11:36 AM BLOCK BOLTER MULE OPERATOR [facility] 04/09/2024 11:0 7 AM BLOCK BOLTER MULE OPERATOR us Ingrid Leger MD LABORATORY Final Result [facility] [address] [place] [address], * (ABNORMAL) FOLIC ACID SERUM (04/09/2024 11:07 AM BLOCK BOLTER MULE OPERATOR) FOLATE 32.7(H) 3.1 - 17.5 NG/ML 04/10/2024 1:56 PM BLOCK BOLTER MULE OPERATOR [facility] 04/09/2024 11:0 7 AM BLOCK BOLTER MULE OPERATOR us Ingrid Leger MD LABORATORY Final Result Performing Organization Address City/[facility]/ZIP Co de Phone Number [facility] [address] [place] [address], [phone] * (ABNORMAL) HEMOGLOBIN, GLYCOSYLATED (04/08/2024 12:43 PM BLOCK BOLTER MULE OPERATOR) HGB A1C 6.4(H) <5.7 % 04/09/2024 12:43 PM BLOCK BOLTER MULE OPERATOR [facility] ESTIMATED AVG GLUCOSE 137(H) 74 - 114 MG/DL 04/09/2024 12:43 PM BLOCK BOLTER MULE OPERATOR [facility] 04/08/2024 12:4 3 PM BLOCK BOLTER MULE OPERATOR us Ingrid Leger MD LABORATORY Final Result Performing Organization Address City/[facility]/ZIP Co de Phone Number [facility] [address] [place] [address], [phone] * FREE T3 (04/08/2024 12:43 PM BLOCK BOLTER MULE OPERATOR) FREE T3 2.2 2.2 - 3.9 PG/ML 04/09/2024 1:00 PM BLOCK BOLTER MULE OPERATOR [facility] 04/08/2024 12:4 3 PM BLOCK BOLTER MULE OPERATOR us Ingrid Leger MD LABORATORY Final Result Performing Organization Address [facility] Co de Phone Number [facility] [address] [place] [address], [phone] * (ABNORMAL) COMPREHENSIVE METABOLIC PANEL (04/08/2024 12:43 PM BLOCK BOLTER MULE OPERATOR) SODIUM S/P/B 138 136 - 145 MMOL/L 04/08/2024 1:[address] [facility] POTASSIUM S/P/B 4.4 3.5 - 5.1 MMOL/L 04/08/2024 1:[address] [facility] CHLORIDE S/P/B 100 98 - 107 MMOL/L 04/08/2024 1:[address] [facility] CO2 29.8 21.0 - 32.0 MMOL/L 04/08/2024 1:[address] [facility] GLUCOSE 112(H) 70 - 99 MG/DL 04/08/2024 1:[address] [facility] Comment: FASTING GLUCOSE 100 TO 125 MG/DL IS CONSISTENT WITH IMPAIRED FASTING GLUCOSE. FASTING GLUCOSE >125 MG/DL IS CONSISTENT WITH DIABETES. RANDOM GLUCOSE >200 MG/DL WITH HYPERGLYCEMIC SYMPTOMS IS CONSISTENT WITH DIABETES. PER ADA GUIDELINES BUN 17 6 - 24 MG/DL 04/08/2024 1:[address] [facility] CREATININE S/P/B 0.93 0.70 - 1.30 MG/DL 04/08/2024 1:[address] [facility] CALCIUM S/P/B 9.0 8.4 - 10.5 MG/DL 04/08/2024 1:[address] [facility] BILIRUBIN TOTAL S/P/B 0.7 0.2 - 1.0 MG/DL 04/08/2024 1:[address] [facility] Comment: THIS ASSAY IS NOT RECOMMENDED FOR PATIENTS UNDERGOING TREATMENT WITH ELTROMBOPAG DUE TO THE POTENTIAL FOR FALSELY ELEVATED RESULTS. ALKALINE PHOSPHATASE S/P/B 141(H) 45 - 115 U/L 04/08/2024 1:[address] [facility] AST 34 15 - 37 U/L 04/08/2024 1:[address] [facility] ALT 71(H) 16 - 63 U/L 04/08/2024 1:[address] [facility] TOTAL PROTEIN S/P/B 7.9 6.4 - 8.2 G/DL 04/08/2024 1:[address] [facility] ALBUMIN S/P/B 3.8 3.4 - 5.0 G/DL 04/08/2024 1:[address] [facility] ANION GAP 8.2 5.0 - 15.0 MMOL/L 04/08/2024 1:[address] [facility] OSMOLALITY (CALC) 288 MOSM/KG 024 1:[address] [facility] Comment:REFERENCE RANGE NOT ESTABLISHED GFR ESTIMATE 90 >89 ML/MIN/1. 73 M2 04/08/2024 1:[address] [facility] GFR NOTES GFR REFERENCE S: 04/08/2024 1:[address] [facility] Comment: THE ESTIMATED GFR IS [...] <15 ml/min/1.73 m2 04/08/2024 12:4 3 PM BLOCK BOLTER MULE OPERATOR us Ingrid Leger MD LABORATORY Final Result Performing Organization Address [facility] Co de Phone Number [facility] [address] [place] [address], * (ABNORMAL) LIPID PANEL (04/08/2024 12:43 PM BLOCK BOLTER MULE OPERATOR) CHOLESTEROL 143 MG/DL 04/09/2024 12:54 PM BLOCK BOLTER MULE OPERATOR [facility] Comment:DESIRABLE: <200 TRIGLYCERIDES 165 MG/DL 04/09/2024 12:54 PM BLOCK BOLTER MULE OPERATOR [facility] Comment:150-199 BORDERLINE H IGH HDL 33(L) >39 MG/DL 04/09/2024 12:54 PM BLOCK BOLTER MULE OPERATOR [facility] LDL-C 77 MG/DL 04/09/2024 12:54 PM BLOCK BOLTER MULE OPERATOR [facility] Comment:<100 OPTIMAL VLDL CALCULATION 33 MG/DL 04/09/20 12:54 PM BLOCK BOLTER MULE OPERATOR [facility] Comment:REFERENCE RANGE NOT ESTABLISHED CHOL/HDL RATIO 4.3 04/09/2024 12:54 PM BLOCK BOLTER MULE OPERATOR [facility] Comment:REFERENCE RANGE NOT ESTABLISHED LDL/HDL 2.3 04/09/2024 12:54 PM BLOCK BOLTER MULE OPERATOR [facility] Comment:REFERENCE RANGE NOT ESTABLISHED NON HDL CHOLESTEROL 110 MG/DL 04/09/2024 12:54 PM BLOCK BOLTER MULE OPERATOR [facility] Comment:REFERENCE RANGE NOT ESTABLISHED 04/08/2024 12:4 3 PM [employer] OPERATOR us Ingrid Leger MD LABORATORY Final Result Performing Organization Address City/[facility]/ZIP Co de Phone Number [facility] [address] [place] [address], [id number] * CBC W/DIFF AUTOMATED (04/08/2024 12:43 PM [employer] OPERATOR) WBC 7.31 4.00 - 10.80 x10'3/uL 04/08/2024 12:49 PM [employer] OPERATOR [facility] RBC 5.12 4.50 - 6.10 x10'6/uL 04/08/2024 12:49 PM [employer] [facility] HGB 14.5 13.0 - 18.0 G/DL 04/08/2024 12:[address] [facility] HCT 43.7 37.0 - 52.0 % 04/08/2024 12:[address] [facility] MCV 85.4 78.0 - 100.0 FL 04/08/2024 12:[address] [facility] MCH 28.3 27.0 - 31.0 PG 04/08/2024 12:[address] [facility] MCHC 33.2 33.0 - 36.0 G/DL 04/08/2024 12:[address] [facility] RDW 13.2 11.5 - 14.5 % 04/08/2024 12:[address] [facility] PLT 286 150 - 350 x10'3/uL 04/08/2024 12:[address] [facility] MPV 9.1 7.4 - 10.4 FL 04/08/2024 12:[address] [facility] CBC COMMENT NORMAL REFERENCE RANGE NOT ESTABLISHED FOR THE PROPORTIONAL LEUKOCYTE DIFFERENTIAL. 04/08/2024 12:[address] [facility] NEUTROPHILS % 58.5 % 04/08/2024 12:[address] [facility] LYMPHOCYTES % 29.4 % 04/08/2024 12:[address] [facility] MONOCYTES % 9.6 % 04/08/2024 12:[address] [facility] EOSINOPHILS % 1.4 % 04/08/2024 12:[address] [facility] BASOPHILS % 0.8 % 04/08/2024 12:[address] [facility] IMMATURE GRANS % 0.3 % 04/08/20 12:49 PM BLOCK BOLTER MULE OPERATOR [facility] NRBC % 0.0 % 04/08/2024 12:49 PM BLOCK BOLTER MULE OPERATOR [facility] ABS. NEUTROPHILS 4.28 1.60 - 8.30 x10'3/uL 04/08/2024 12:49 PM BLOCK BOLTER MULE OPERATOR [facility] ABS. LYMPHOCYTES 2.15 0.80 - 4.70 x10'3/uL 04/08/2024 12:49 PM BLOCK BOLTER MULE OPERATOR [facility] ABS. MONOCYTES 0.70 0.00 - 1.50 x10'3/uL 04/08/2024 12:49 PM BLOCK BOLTER MULE OPERATOR [facility] ABS. EOSINOPHILS 0.10 0.00 - 0.40 x10'3/uL 04/08/2024 12:49 PM BLOCK BOLTER MULE OPERATOR [facility] ABS. BASOPHILS 0.06 0.00 - 0.20 x10'3/uL 04/08/2024 12:49 PM BLOCK BOLTER MULE OPERATOR [facility] ABS. IMMATURE GRANULOCYTES 0.02 0.00 - 0.03 x10'3/uL 04/08/2024 12:49 PM BLOCK BOLTER MULE OPERATOR [facility] ABS. NUCLEATED RBC'S 0.00 0.00 - 0.01 x10'3/uL 04/08/2024 12:49 PM BLOCK BOLTER MULE OPERATOR [facility] 04/08/2024 12:4 3 PM BLOCK BOLTER MULE OPERATOR us Ingrid Leger MD LABORATORY Final Result [facility] [address] [employer] [place] [address], * THYROXINE, FREE (FT4) (04/08/2024 12:43 PM BLOCK BOLTER MULE OPERATOR) FREE T4 1.09 0.76 - 1.46 NG/DL 04/08/2024 1:14 PM BLOCK BOLTER MULE OPERATOR [facility] 04/08/2024 12:4 3 PM BLOCK BOLTER MULE OPERATOR us Ingrid Leger MD LABORATORY Final Result Performing Organization Address City/[facility]/ZIP Co de Phone Number [facility] [address] [place] [address], [place] [phone] * THYROID STIM HORMONE TSH (04/08/2024 12:43 PM 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 PATIENT RESULTS DETERMINED BY ASSAYS FROM DIFFERENT MANUFACTURERS AND/OR BY DIFFERENT METHODS MAY NOT BE COMPARABLE. 04/08/2024 12:4 3 PM BLOCK BOLTER MULE OPERATOR us Ingrid Leger MD LABORATORY Final Result Performing Organization Address [facility] Co de Phone Number [facility] [address] [place] [address], [place] [phone] from Last 3 Months Insurance HUMAN Care Teams Counter Supply Worker Relationship Specialty Start Date End Date Ingrid Leger MD [address] [place] [id number] PCP - General INTERNAL MEDICINE 10/12/23
[2024-07-02 07:28] LABS: Basophils Absolute Auto 0.1 K/mm3 (0.0-0.1); Basophils Percent Auto 0.9 % (0.2-1.2); Eosinophils Absolute Auto 0.2 K/mm3 (0-0.3); Eosinophils Percent Auto 1.8 % (0-4.4); Hematocrit 44.1 % (42.0-52.0); Immature Granulocyte Absolute 0.12 K/mm3 (0.00-0.031); Immature Granulocyte Percent A 1.5 % (0-0.5); Lymphocytes Absolute Auto 2.12 K/mm3 (0.9-3.2); Mean Corpuscular HGB Conc 31.7 g/dl (32-36); Mean Corpuscular Hemoglobin 28.1 pg (26-34); Mean Corpuscular Volume 88.4 fl (80-100); Mean Platelet Volume 9.9 fl (7.4-10.4); Monocytes Absolute Auto 0.5 K/mm3 (0.1-0.6); Monocytes Percent Auto 6.4 % (2.6-8.5); Neutrophils Absolute Auto 5.2 K/mm3 (1.3-6.7); Neutrophils Percent Auto 63.4 % (45.5-73.1); Platelet Count Result 208 k/mm3 (150-375); Red Blood Count 4.99 M/mm3 (4.6-6.20); Red Cell Distribution Width 15.3 % (11.5-14.5); White Blood Count 8.1 K/mm3 (4.5-10.0)
[2024-07-02 07:38] LABS: Anion Gap 11 mmol/L (4-12); Blood Urea Nitrogen 20 mg/dL (9-20); Calcium 9.7 mg/dL (8.4-10.2); Carbon Dioxide 26 mmol/L (22-30); Chloride 104 mmol/L (98-107); Estimated CRCL calculation 88 ml/min; Estimated Glomerular Filt Rate > 60; Glucose 122 mg/dL (65-110); Sodium 141 mmol/L (137-145)
--- NOTE | 2024-07-02 08:33 | P.SEDATION_ITS ---
Moderate Sedation Note-Pt Data Patient Data Diagnosis: Coronary artery disease Present Complaint: Coronary artery disease Procedure to be performed/Plan: Coronary angiography, left heart cath, +/- PCI Allergies Allergy/AdvReac Type Severity Reaction Status Date / Time No Known Allergies Allergy Verified 07/02/24 07:23 Home Medications ?Medication ?Instructions ?Recorded ?Confirmed ?Type aspirin 81 mg tablet,delayed 81 mg PO DAILY 07/01/24 07/01/24 History release (Adult Aspirin Regimen) atorvastatin 20 mg tablet 20 mg PO QPM 07/01/24 07/01/24 History azathioprine 50 mg tablet 50 mg PO DAILY 07/01/24 07/01/24 History empagliflozin 25 mg tablet 25 mg PO DAILY 07/01/24 07/01/24 History (Jardiance) hydrocortisone 2.5 % topical cream 1 applic RECTAL PRN 07/01/24 07/01/24 History with perineal applicator ketoconazole 2 % topical cream 1 applic topical PRN 07/01/24 07/01/24 History lisinopril 10 mg tablet 10 mg PO DAILY 07/01/24 07/01/24 History metformin 1,000 mg tablet 1,000 mg PO BID 07/01/24 07/01/24 History metoprolol tartrate 25 mg tablet 12.5 mg PO Q12H 07/01/24 07/01/24 History prednisone 5 mg tablet 5 mg PO DAILY 07/01/24 07/01/24 History sildenafil 25 mg tablet 25 mg PO PRN 07/01/24 07/01/24 History tirzepatide 2.5 mg/0.5 mL 2.5 mg subcut WEEKLY 07/01/24 07/01/24 History subcutaneous pen injector (Kwameunmyahro) Current Medications: Active Medications Sodium Chloride (Normal Saline Iv) 500 mls @ 100 mls/hr IV CONT .Q5H [facility] Miscellaneous Information (Please Add Drug Allergy Info To Patient Profile.) 1 each XX CLARIFY MAY Stop: 07/31/24 00:00 Sedation/Anesthesia: No previous sedation/anesthesia problems (including family history). PMFSH Social History Social History Smoking status: Former smoker Living arrangements: with family Mod Sed Physical Exam Physical Exam Pre Procedural Exam: Normal: Appearance, Lungs, Heart Rate, Heart Rhythm, Neuro Exam, Extremities and Skin Hours since solid foods: 12 Hours since liquid intake: 8 Mallampati Classification: class III Internal Medicine - PN: Obj Da Vital Signs Vital Signs: Vital Signs - 24 hr 07/02/24 07:26 Pulse Rate 69 Respiratory Rate 16 Blood Pressure 124/84 Pulse Oximetry 96 Oxygen Delivery Room Air Meds/Results Medications: Active Medications Generic Name Dose Route Start Last Admin Trade Name Freq PRN Reason Stop Dose Admin Sodium Chloride 500 mls @ 100 mls/hr 07/02/24 07:00 Normal Saline Iv IV CONT .Q5H MAY Miscellaneous Information 1 each 07/01/24 00:01 Please Add Drug Allergy Info To Patient Profile. XX 07/31/24 00:00 CLARIFY MAY Labs 07/02/24 07:19 07/02/24 07:19 Labs: Laboratory Results - last 24 hr 07/02/24 07:19 WBC 8.1 RBC 4.99 Hgb 14.0 Hct 44.1 MCV 88.4 MCH 28.1 MCHC 31.7 L RDW 15.3 H Plt Count 208 MPV 9.9 Immature Gran % (Auto) 1.5 H Neut % (Auto) 63.4 Lymph % (Auto) 26.0 Hardin % (Auto) 6.4 Eos % (Auto) 1.8 Baso % (Auto) 0.9 Lymph # (Auto) 2.12 Hardin # (Auto) 0.5 Eos # (Auto) 0.2 Baso # (Auto) 0.1 Abs Immat Gran (auto) 0.12 H Absolute Neuts (auto) 5.2 Absolute Nucleated RBC 0.000 Nucleated RBC % 0.0 Sodium 141 Potassium 4.0 Chloride 104 Carbon Dioxide 26 Anion Gap 11 BUN 20 Creatinine 0.70 Estim Creat Clear Calc 88 Estimated GFR > 60 Glucose 122 H Calcium 9.7 ASA Classification/Sedation ASA Classification/Sedation ASA Class: III Emergent: No Risks: Risks, benefits and alternatives explained and patient/family accepted plan for sedation. Patient re-evaluated immediately prior to sedation.
--- NOTE | 2024-07-02 08:33 | WPDHPUPDATE1 ---
History and Physical Update Update Date/Time: 07/02/24 08:33 History and Physical has been reviewed, including an updated exam of the patient. There are NO changes in the patient's condition. Risks, benefits, and alternatives have been discussed and questions answered. Patient agrees to proceed with procedure.
--- NOTE | 2024-07-02 09:01 | P.PCNCC_ITS ---
Cardiac Cath Procedure Note Date of procedure:: 07/02/24 Performing physician:: CATHETERIZATION LABORATORY REPORT Procedure Date: 07/02/2024 Software Program Manager: Cheryl Ortiz M.D., [facility]? Referring Physician: Rj Shankar M.D. Anesthesia: Versed and Fentanyl were ordered and given in my presence at 08:36, procedure ended at 08:58. Supervision of nurse monitored moderate sedation with Versed and Fentanyl was provided for 22 minutes. Total of Versed 1mg and Fentanyl 50mcg were administered by the Child Support Case Officer RN Justine Jiang. Pre-op Diagnosis: Coronary artery disease Post-op Diagnosis: Coronary artery disease with BANKRUPTCY PROCESSOR of the proximal RCA. Procedure(s): 1. Moderate sedation 2. Ultrasound-guided access of the right radial artery 3. Coronary angiography Access Site: Right radial artery Brief History and Clinical Indications: Patient is a 69 year old male who is referred for [facility] for abnormal stress test. All risks, benefits and alternatives to left heart catheterization with or without percutaneous coronary intervention was discussed at length with the patient. Risk of complications including but not limited to bleeding, infection, arrhythmia, stroke, worsening kidney function, blood loss, groin hematoma, limb loss, emergency coronary artery bypass grafting, and even were discussed with the patient and all questions were answered. The patient understood and wished to proceed. Time out called, patient name, date of , medical record number, allergies, procedure performed, identify Software Program Manager, patient and staff member concurred with accurate data, procedure carried on. Findings: LEFT HEART CATHETERIZATION FINDINGS: 1. Left main: The left main coronary artery is widely patent without any significant obstructive disease. 2. Left anterior descending: Calcifications seen in the proximal LAD. The proximal LAD has mild 40-50% stenosis. The distal LAD has mild disease. The first diagonal branch has a moderate ostial stenosis. No significant obstructive angiographic disease. 3. Left circumflex: Calcifications seen in the proximal LCX. The proximal LCX has mild disease. Remainder of the LCX has luminal irregularities. The OM branch is a large caliber vessel with mild diffuse disease. No significant obstructive angiographic disease. 4. Right coronary artery: The RCA is the dominant vessel. The RCA is BANKRUPTCY PROCESSOR in its proximal portion. There are [id number] collaterals filling the distal RCA territory. There are some [id number] bridging collaterals. Description of Procedure: Informed consent signed and placed in the chart. Patient transferred to custodial laborer room. Prepped and draped in usual sterile fashion. 2% lidocaine injected subcutaneously in right wrist area. 22-gauge venipuncture catheter used to access the right radial artery under ultrasound guidance. 6-FR slender sheath placed in right radial artery. Nitroglycerine and Verapamil were given intraarterial through the sheath. Versacore wire advanced under fluoroscopy 5F Tig 4 diagnostic catheter engaged Left Main Coronary Artery. 5F FR 4 diagnostic catheter engaged Right Coronary Artery Multiple orthogonal angiogram obtained and reviewed Hemostasis was achieved by application of TR band. Disposition: Home Plan: The patient will be monitored in the recovery area. The above findings were discussed with the referring physician. Continue aggressive medical therapy and risk factor modification. ? Cheryl Ortiz M.D. Interventional Cardiology
== END 2024-07-02 12:50 | disposition home or self-care (01) ==
PROVIDERS: PCP Internal Medicine; Visit Provider Internal Medicine
PROC: (CPT 93454; principal; 2024-07-02 08:30)
DX: I25.10 Atherosclerotic heart disease of native coronary artery without angina pectoris (principal); R94.39 Abnormal result of other cardiovascular function study; Z87.891 Personal history of nicotine dependence
CPT/HCPCS: 36415; 80048; 85025; 93454; C1769; C1887; C1894; J1644; J2003; J2250; J2305; J3010; J7040